=== PATIENT | female | born 1960 | race Caucasian/White ===

== ENCOUNTER 2017-10-11 12:28 | Emergency (ER) | payer SELFPAY ==
[2017-10-11 12:38] VITALS: BP 154/90; PULSE 99; RESP 18; TEMP 98.3
--- NOTE | 2017-10-11 13:54 | ED ---
Skin/Abscess/FB HPI - General Chief complaint: Skin/Abscess/Foreign Body Stated complaint: Rash on forehead & eye Time Seen by Provider: 10/11/17 12:50 Source: patient Mode of arrival: ambulatory Limitations: no limitations - History of Present Illness Initial comments: Patient is a 57-year-old female presenting to the emergency department with chief complaint of rash to the left side of her forehead that started on . Patient complains of a tingling and itching sensation. Patient states she also broke a blood vessel in her left eye from coughing. Patient states she tried calamine lotion [id number] without relief. No history of recent illness, fevers, nausea, vomiting, shortness of breath, chest pain, lower abdominal pain. Patient denies history of similar symptoms. - Related Data Home Medications Medication Instructions Recorded Confirmed Ibuprofen [Motrin] 600 mg PO Q6HR PRN 10/11/17 10/11/17 diphenhydrAMINE [Benadryl] 50 mg PO ONCE PRN 10/11/17 10/11/17 Previous Rx's Medication Instructions Recorded Cephalexin [Keflex] 500 mg PO Q6HR #28 cap 10/11/17 predniSONE 50 mg PO DAILY #5 tab 10/11/17 valACYclovir HCL [Valtrex] 1,000 mg PO Q8HR #21 tab 10/11/17 Allergies Allergy/AdvReac Type Severity Reaction Status Date / Time Sulfa (Sulfonamide Allergy Unknown Verified 10/11/17 12:57 Antibiotics) Review of Systems ROS Statement: Those systems with pertinent positive or pertinent negative responses have been documented in the HPI. ROS Other: All systems not noted in ROS Statement are negative. Past Medical History Past Medical History: No Reported History History of Any Multi-Drug Resistant Organisms: None Reported Past Surgical History: No Surgical Hx Reported Past Psychological History: No Psychological Hx Reported Smoking Status: Current every day smoker Past Alcohol Use History: None Reported Past Drug Use History: None Reported General Exam Limitations: no limitations General appearance: alert, in no apparent distress Head exam: Present: atraumatic, normocephalic, normal inspection Eye exam: Present: PERRL, EOMI, periorbital swelling (Mild periorbital swelling. ), other (Subconjunctival hemorrhage to left eye). Absent: scleral icterus Pupils: Present: normal accommodation, other (patton lamp exam reveal no evidence of dendrite lesions or other uptake noted.) Expanded Eyelids: Normal Inspection: Bilateral Pupils: Regular, Round: Bilateral, Reactive: Bilateral Sclera/Conjunctival: Hemorrhage: Left Visual acuity (R) = 20/: 100 Visual acuity (L) = 20/: 100 With correction: No ENT exam: Present: normal oropharynx, mucous membranes moist, TM's normal bilaterally, normal external ear exam Expanded Ear exam: Present: normal external inspection Mouth exam: Present: normal external inspection, tongue normal. Absent: drooling, trismus, muffled voice, tongue elevation Teeth exam: Present: normal inspection Throat exam: normal inspection. negative: tonsillar erythema, tonsillomegaly, tonsillar exudate, R peritonsillar mass, L peritonsillar mass Neck exam: Present: normal inspection, full ROM. Absent: tenderness, lymphadenopathy Respiratory exam: Present: normal lung sounds bilaterally. Absent: respiratory distress, wheezes, rales, rhonchi, decreased breath sounds Cardiovascular Exam: Present: regular rate, normal rhythm, normal heart sounds. Absent: systolic murmur GI/Abdominal exam: Present: soft, normal bowel sounds. Absent: distended, tenderness Extremities exam: Present: normal inspection, full ROM, normal capillary refill. Absent: tenderness Back exam: Present: normal inspection, full ROM. Absent: rash noted Neurological exam: Present: alert, oriented X3, CN II-XII intact, normal gait, other (No focal deficits noted). Absent: motor sensory deficit Psychiatric exam: Present: normal affect, normal mood Skin exam: Present: warm Expanded Type of lesion: Present: rash Distribution of rash: head (Follows dermatome on the left side of face) Description of rash: Present: erythematous, vesicular (Consistent with herpes zoster) Course Vital Signs 10/11/17 12:35 Temperature 98.3 F Pulse Rate 99 Respiratory 18 Rate Blood Pressure 154/90 O2 Sat by Pulse 97 Oximetry Medical Decision Making - Medical Decision Making Herpes zoster without ocular involvement. Concern for secondary bacterial infection due to scratching. Patient placed on Valtrex and Bactrim. Patient instructed to follow-up with jewelry repairer without 24 hours. Patient instructed to follow-up for primary care physician as directed. Patient started to return to the emergency department with any new or worsening symptoms. Patient agrees with treatment plan. Disposition Clinical Impression: Herpes zoster Disposition: HOME SELF-CARE Condition: Good Instructions: Shingles (ED) Additional Instructions: Finish antiviral and antibiotic as directed. Finish prednisone as directed. Follow-up with jewelry repairer within 24 hours and primary care physician in next 24-48 hours. May use Tylenol or Motrin for pain. Please return to the emergency department with any new or worsening symptoms. Prescriptions: Cephalexin [Keflex] 500 mg PO Q6HR #28 cap predniSONE 50 mg PO DAILY #5 tab valACYclovir HCL [Valtrex] 1,000 mg PO Q8HR #21 tab Referrals: Cheyenne Aggarwal MD [Primary Care Provider] - 1-2 days Sal Argueta MD [STAFF PHYSICIAN] - 1-2 days (follow-up within 24 hours ) Decision Time: 13:54
== END 2017-10-11 14:02 | disposition home or self-care (01) ==
LOC: EC 12:28
DX: B02.9 Zoster without complications (principal); F17.200 Nicotine dependence, unspecified, uncomplicated; Z88.2 Allergy status to sulfonamides
CPT/HCPCS: 99282

== ENCOUNTER 2023-09-05 16:36 | Inpatient (IN) | payer BC, OTHER ==
[2023-09-05] MEDS ORDERED: IPRATROPIUM-ALBUTEROL 3 ML NEB INHALATION STA ×2 (17:02)
[2023-09-05] MEDS ORDERED: methylPREDNISolone SOD SUCCI 125 MG/2 ML VIAL IV STA (17:03)
[2023-09-05] MEDS ORDERED: MAGNESIUM SULFATE-D5W PMX 1 GM in DEXTROSE/WATER 1 100ML.BAG IVPB STA (17:03)
--- NOTE | 2023-09-05 17:34 | ED ---
General Adult HPI - General Chief complaint: Shortness of Breath Stated complaint: CHARLIE Time Seen by Provider: 09/05/23 16:58 Source: patient, RN notes reviewed, old records reviewed Mode of arrival: wheelchair Limitations: no limitations - History of Present Illness Initial comments: Patient is a 63-year-old female who presents emergency department for shortness of breath. Is a chronic smoker. Recently diagnosed with COPD. Is not normally on oxygen. He was found to be possibly hypoxic into the 60%'s in triage however they were using pulse ox over a nail turkish nail. She was placed in trauma bay 1 for evaluation. States her shortness of breath has been progressive for weeks to months. Endorses chronic cough that is unchanged from baseline. No increased sputum production. No fevers, chills. Denies any chest pain, abdominal pain, nausea, vomiting. Has noticed a few months of mildly increased lower extremity swelling. States she still smokes. Has no other acute complaints at this time. Presents for shortness of breath. Presents from Dr. Aggarwal's office. - Related Data Home Medications Medication Instructions Recorded Confirmed No Known Home Medications 09/05/23 09/05/23 Allergies Allergy/AdvReac Type Severity Reaction Status Date / Time Sulfa (Sulfonamide Allergy Unknown Verified 09/05/23 19:08 Antibiotics) Childhood Review of Systems ROS Statement: Those systems with pertinent positive or pertinent negative responses have been documented in the HPI. Review of Systems: CONST: Denies fever EYES: Denies blurry vision ENT: Denies nasal congestion C/V: Denies Chest pain RESP: Endorses shortness of breath GI: Denies abdominal pain : Denies dysuria SKIN: Denies rash. MSK: Denies joint pain. NEURO: Denies headache ROS Other: All systems not noted in ROS Statement are negative. Past Medical History Past Medical History: No Reported History, COPD History of Any Multi-Drug Resistant Organisms: None Reported Past Surgical History: No Surgical Hx Reported Past Psychological History: No Psychological Hx Reported Smoking Status: Current every day smoker, Heavy tobacco smoker Past Alcohol Use History: None Reported Past Drug Use History: None Reported General Exam - General Exam Comments Initial Comments: General: Appears in no acute distress. HEAD: Normal with no signs of head trauma. EYES: PERRLA, EOMI, conjunctiva normal, no discharge. ENT: Hearing grossly intact, normal oropharynx. RESPIRATORY: Diminished breath sounds bilaterally. No obvious rhonchi. Hypoxic on room air. Normoxic on 2-3 L nasal cannula. No significantly increased work of breathing. C/V: Regular rate and rhythm. S1 and S2 auscultated, mild bilateral lower extremity symmetrical pitting edema., peripheral pulses 2+ and intact throughout ABD: Abd is soft, nontender, nondistended EXT: Normal range of motion, no obvious deformity SKIN: No rashes or lesions observed on exposed skin. NEURO: Alert and oriented 4. Limitations: no limitations Course Vital Signs 09/05/23 09/05/23 09/05/23 16:49 16:53 17:03 Temperature 98.2 F Pulse Rate 109 H 105 H Respiratory 20 20 Rate Blood Pressure 98/58 131/77 O2 Sat by Pulse 67 L 88 L 92 L Oximetry 09/05/23 09/05/23 09/05/23 17:09 17:21 18:00 Temperature Pulse Rate 105 H 111 H 94 Respiratory 20 Rate Blood Pressure 134/78 O2 Sat by Pulse 92 L Oximetry 09/05/23 09/05/23 09/05/23 18:49 19:34 19:51 Temperature Pulse Rate 92 87 86 Respiratory 20 22 Rate Blood Pressure 125/83 125/75 O2 Sat by Pulse 96 94 L Oximetry Medical Decision Making - Medical Decision Making Was pt. sent in by a medical professional or institution (, PA, CABLE SPLICER HELPER, urgent care, hospital, or usp...) When possible be specific @ -Sent in by Dr. Aggarwal Did you speak to anyone other than the patient for history (EMS, parent, family, police, friend...)? What history was obtained from this source @ -No Did you review nursing and triage notes (agree or disagree)? Why? @ -I reviewed and agree with nursing and triage notes Were old charts reviewed (outside hosp., previous admission, EMS record, old EKG, old radiological studies, urgent care reports/EKG's, usp records)? Report findings @ -Old charts reviewed. Differential Diagnosis (chest pain, altered mental status, abdominal pain women, abdominal pain men, vaginal bleeding, weakness, fever, dyspnea, syncope, headac he, dizziness, GI bleed, back pain, seizure, CVA, palpatations, mental health, musculoskeletal)? @ -Differential Dyspnea: Coronary syndrome, arrhythmia, tamponade, asthma, COPD, pulmonary embolism, pneumonia, pneumothorax, pulmonary effusion, anaphylaxis, diabetic ketoacidosis, flailed chest, pulmonary contusion, diaphragmatic rupture, anemia, neuromuscular, this is not meant to be an all-inclusive list. EKG interpreted by me (3pts min.). @ -As above X-rays interpreted by me (1pt min.). @ -Chest x-ray reveals bilateral infiltrates. Concern for pneumonia CT interpreted by me (1pt min.). @ -None done U/S interpreted by me (1pt. min.). @ -None done What testing was considered but not performed or refused? (CT, X-rays, U/S, labs)? Why? @ -None What meds were considered but not given or refused? Why? @ -None Did you discuss the management of the patient with other professionals (professionals i.e. , PA, CABLE SPLICER HELPER, lab, RT, psych nurse, director of social media marketing, director appointment, teacher, collections officer, case liner)? Give summary @ -I spoke with Dr. English who accepted the admission. Was smoking cessation discussed for >3mins.? @ -No Was critical care preformed (if so, how long)? @ -Yes, 35 min Were there social determinants of health that impacted care today? How? (Homelessness, low income, unemployed, alcoholism, drug addiction, transportation, low edu. Level, literacy, decrease access to med. care, half-way, rehab)? @ -No Was there de-escalation of care discussed even if they declined (Discuss DNR or withdrawal of care, Hospice)? DNR status @ -No What co-morbidities impacted this encounter? (DM, HTN, Smoking, COPD, CAD, Cancer, CVA, ARF, Chemo, Hep., AIDS, mental health diagnosis, sleep apnea, morbid obesity)? @ -None Was patient admitted / discharged? Hospital course, mention meds given and route, prescriptions, significant lab abnormalities, going to OR and other pertinent info. @ -Based on the patient's presentation and physical exam, I do believe symptoms likely are his COPD exacerbation causing her current hypoxic respiratory failure requiring nasal cannula oxygen. Cannot definitely rule out CHF at this time she is having some mild increased lower extremity edema. Patient will be symptomatically treated with DuoNeb times, IV steroids and magnesium. We'll obtain cardiopulmonary labs. Patient was in agreement this plan. Patient's vital signs initially were hypoxic on room air in triage possibly done and 60s however on 2-3 L nasal cannula patient is saturating anywhere from 91 and 94%. EKG shows no signs of ischemia.Chest x-ray reveals bilateral infiltrates per patient's laboratory studies are remarkable for leukocytosis of 26.1. Patient is not on steroids. Lactic acid is within normal limits. BNP is elevated to 2500. Viral swabs negative. On reevaluation, patient's chest tightness is improved. More wheezes bilaterally. Patient is saturating 94% on 2 L nasal cannula and remained stable. Hemodynamically stable otherwise. We discussed her workup. We will start the patient on IV antibiotics, obtain blood cultures and sputum cultures, admit for pneumonia as well as COPD exacerbation. Pulmonology was consulted. Patient was in agreement this plan. Respiratory admitting team, Dr. English who accepted the admission. Undiagnosed new problem with uncertain prognosis? @ -No Drug Therapy requiring intensive monitoring for toxicity (Heparin, Nitro, Insulin, Cardizem)? @ -No Were any procedures done? @ -No Diagnosis/symptom? @ -COPD, pneumonia, hypoxic respiratory failure Acute, or Chronic, or Acute on Chronic? @ -Acute Uncomplicated (without systemic symptoms) or Complicated (systemic symptoms)? @ -Complicated Side effects of treatment? @ -none Exacerbation, Progression, or Severe Exacerbation] @ -no Poses a threat to life or bodily function? @ -Yes - Lab Data Result diagrams: 09/05/23 17:03 09/05/23 17:03 Lab Results 09/05/23 09/05/23 09/05/23 Range/Units 17:03 17:03 17:03 WBC 26.1 H (3.8-10.6) k/uL RBC 4.55 (3.80-5.40) m/uL Hgb 13.8 (11.4-16.0) gm/dL Hct 44.1 (34.0-46.0) % MCV 97.1 (80.0-100.0) fL MCH 30.4 (25.0-35.0) pg MCHC 31.3 (31.0-37.0) g/dL RDW 13.3 (11.5-15.5) % Plt Count 420 (150-450) k/uL MPV 8.4 Neutrophils % 91 % Lymphocytes % 4 % Monocytes % 4 % Eosinophils % 0 % Basophils % 0 % Neutrophils # 23.7 H (1.3-7.7) k/uL Lymphocytes # 1.0 (1.0-4.8) k/uL Monocytes # 1.1 H (0-1.0) k/uL Eosinophils # 0.1 (0-0.7) k/uL Basophils # 0.0 (0-0.2) k/uL Hypochromasia Slight PT 11.0 (9.0-12.0) sec INR 1.0 (<1.2) APTT 23.1 (22.0-30.0) sec Sodium 136 L (137-145) mmol/L Potassium 4.9 (3.5-5.1) mmol/L Chloride 93 L (98-107) mmol/L Carbon Dioxide 35 H (22-30) mmol/L Anion Gap 8 mmol/L BUN 24 H (7-17) mg/dL Creatinine 0.54 (0.52-1.04) mg/dL Est GFR (CKD-EPI)AfAm >90 (>60 ml/min/1.73 sqM) Est GFR (CKD-EPI)NonAf >90 (>60 ml/min/1.73 sqM) Glucose 123 H (74-99) mg/dL Plasma Lactic Acid Giacomo (0.7-2.0) mmol/L Calcium 8.1 L (8.4-10.2) mg/dL Magnesium 1.9 (1.6-2.3) mg/dL Total Bilirubin 0.4 (0.2-1.3) mg/dL AST 25 (14-36) U/L ALT 19 (4-34) U/L Alkaline Phosphatase 117 (38-126) U/L NT-Pro-B Natriuret Pep 2500 pg/mL Total Protein 5.5 L (6.3-8.2) g/dL Albumin 2.6 L (3.5-5.0) g/dL Influenza Type A (PCR) (Not Detectd) Influenza Type B (PCR) (Not Detectd) RSV (PCR) (Not Detectd) SARS-CoV-2 (PCR) (Not Detectd) 09/05/23 09/05/23 Range/Units 17:03 17:03 WBC (3.8-10.6) k/uL RBC (3.80-5.40) m/uL Hgb (11.4-16.0) gm/dL Hct (34.0-46.0) % MCV (80.0-100.0) fL MCH (25.0-35.0) pg MCHC (31.0-37.0) g/dL RDW (11.5-15.5) % Plt Count (150-450) k/uL MPV Neutrophils % % Lymphocytes % % Monocytes % % Eosinophils % % Basophils % % Neutrophils # (1.3-7.7) k/uL Lymphocytes # (1.0-4.8) k/uL Monocytes # (0-1.0) k/uL Eosinophils # (0-0.7) k/uL Basophils # (0-0.2) k/uL Hypochromasia PT (9.0-12.0) sec INR (<1.2) APTT (22.0-30.0) sec Sodium (137-145) mmol/L Potassium (3.5-5.1) mmol/L Chloride (98-107) mmol/L Carbon Dioxide (22-30) mmol/L Anion Gap mmol/L BUN (7-17) mg/dL Creatinine (0.52-1.04) mg/dL Est GFR (CKD-EPI)AfAm (>60 ml/min/1.73 sqM) Est GFR (CKD-EPI)NonAf (>60 ml/min/1.73 sqM) Glucose (74-99) mg/dL Plasma Lactic Acid Giacomo 1.2 (0.7-2.0) mmol/L Calcium (8.4-10.2) mg/dL Magnesium (1.6-2.3) mg/dL Total Bilirubin (0.2-1.3) mg/dL AST (14-36) U/L ALT (4-34) U/L Alkaline Phosphatase (38-126) U/L NT-Pro-B Natriuret Pep pg/mL Total Protein (6.3-8.2) g/dL Albumin (3.5-5.0) g/dL Influenza Type A (PCR) Not Detected (Not Detectd) Influenza Type B (PCR) Not Detected (Not Detectd) RSV (PCR) Not Detected (Not Detectd) SARS-CoV-2 (PCR) Not Detected (Not Detectd) - EKG Data -: EKG Interpreted by Me EKG Comments: 12-lead Electrocardiogram Interpretation Note EKG was reviewed and interpreted by myself. 12-lead ECG performed at 1706 is interpreted by me as revealing sinus tachycardia at a rate of 105 beats per minute. Left axis deviation. NH interval is 141 ms, QRS duration is 91 ms, ATC is 378 ms.. There were no ST or T wave abnormalities to suggest myocardial ischemia or injury. R wave progression across the precordium was satisfactory. By my interpretation this EKG is non-diagnostic for acute ischemia. Critical Care Time Critical Care Time: Yes Total Critical Care Time: 35 Disposition Clinical Impression: COPD (chronic obstructive pulmonary disease), Pneumonia, Hypoxic respiratory failure Disposition: ADMITTED IP TO THIS HOSP Condition: Serious Time of Disposition: 18:45
--- NOTE | 2023-09-05 17:48 | XR ---
EXAMINATION TYPE: XR chest 2V DATE OF EXAM: 09/05/2023 COMPARISON: NONE HISTORY: Shortness of breath TECHNIQUE: Frontal and lateral views of the chest are obtained. FINDINGS: There is diffuse interstitial opacity in the mid lower lung zones. In addition there is a focal airsp ashlee opacity in the right middle lobe. There is a small left pleural effusion. The pulmonary vasculature does not appear congested and the heart size is normal. There is no pneumothorax. The osseous structures are intact. IMPRESSION: Right middle lobe opacity in bilateral mid and lower lobe interstitial opacity along with small left pleural effusion. The findings consistent with acute cardiopulmonary disease most likely pneumonia.
[2023-09-05 17:59] LABS: Basophils % (A) 0 %; Eosinophils # (A) 0.1 k/uL (0-0.7); Eosinophils % (A) 0 %; HCT 44.1 % (34.0-46.0); HGB 13.8 gm/dL (11.4-16.0); Hypochromasia Slight; Lymphocytes % (A) 4 %; MCH 30.4 pg (25.0-35.0); MCHC 31.3 g/dL (31.0-37.0); MCV 97.1 fL (80.0-100.0); Mean Platelet Volume 8.4; Monocytes # (A) 1.1 k/uL (0-1.0); Monocytes % (A) 4 %; Neutrophils # (A) 23.7 k/uL (1.3-7.7); Neutrophils % (A) 91 %; Platelet Count 420 k/uL (150-450); RBC 4.55 m/uL (3.80-5.40); RDW 13.3 % (11.5-15.5); WBC 26.1 k/uL (3.8-10.6)
[2023-09-05 18:12] LABS: ALT 19 U/L (4-34); AST 25 U/L (14-36); African American GFR (CKD) >90 (>60 ml/min/1.73 sqM); Albumin 2.6 g/dL (3.5-5.0); Alkaline Phosphatase 117 U/L (38-126); Blood Urea Nitrogen 24 mg/dL (7-17); Calcium 8.1 mg/dL (8.4-10.2); Chloride 93 mmol/L (98-107); Glucose 123 mg/dL (74-99); Magnesium 1.9 mg/dL (1.6-2.3); Non-African American GFR(CKD) >90 (>60 ml/min/1.73 sqM); Potassium 4.9 mmol/L (3.5-5.1); Sodium 136 mmol/L (137-145); Total Bilirubin 0.4 mg/dL (0.2-1.3); Total Protein 5.5 g/dL (6.3-8.2)
[2023-09-05 18:17] LABS: NT-Pro-B-Type Natriuretic Pept 2500 pg/mL
[2023-09-05 18:18] LABS: Anion Gap 8 mmol/L; Carbon Dioxide 35 mmol/L (22-30)
[2023-09-05 18:21] LABS: Partial Thromboplastin Time 23.1 sec (22.0-30.0)
[2023-09-05] MEDS ORDERED: ACETAMINOPHEN TAB 325 MG TAB PO PRN (18:50)
[2023-09-05] MEDS ORDERED: NALOXONE 0.4 MG/ML 1 ML VIAL IV PRN (18:50)
[2023-09-05] MEDS ORDERED: PNEUMONIA PROTOCOL UTILIZED 1 EACH MISC PO PRN (18:53)
[2023-09-05] MEDS ORDERED: AZITHROMYCIN 500 MG in SODIUM CHLORIDE 0.9% 250 ML IVPB STA (18:53)
[2023-09-05] MEDS: methylPREDNISolone SOD SUCCI 40 MG/ML 1 ML VIAL IV SCH (19:10)
[2023-09-05] MEDS: SODIUM CHLORIDE 0.9% 1,000 ML IV SCH (19:48)
[2023-09-05] MEDS: IPRATROPIUM-ALBUTEROL 3 ML NEB INHALATION SCH (19:50)
[2023-09-05] MEDS: HEPARIN SODIUM,PORCINE 5,000 UNIT/ML 1 ML VIAL SQ SCH (23:53)
[2023-09-06] MEDS: IPRATROPIUM-ALBUTEROL 3 ML NEB INHALATION SCH ×6 (00:47→21:20)
[2023-09-06 06:11] LABS: Glucose,Whole Blood 111 mg/dL (70-110)
[2023-09-06 08:08] LABS: Basophils % (A) 0 %; Eosinophils % (A) 0 %; HCT 42.6 % (34.0-46.0); HGB 13.3 gm/dL (11.4-16.0); Hypochromasia Moderate; Lymphocytes # (A) 0.5 k/uL (1.0-4.8); Lymphocytes % (A) 3 %; MCH 30.6 pg (25.0-35.0); MCHC 31.1 g/dL (31.0-37.0); MCV 98.4 fL (80.0-100.0); Mean Platelet Volume 8.3; Monocytes # (A) 0.4 k/uL (0-1.0); Monocytes % (A) 2 %; Neutrophils # (A) 17.1 k/uL (1.3-7.7); Neutrophils % (A) 94 %; Platelet Count 399 k/uL (150-450); RBC 4.32 m/uL (3.80-5.40); RDW 13.2 % (11.5-15.5); WBC 18.2 k/uL (3.8-10.6)
[2023-09-06] MEDS: SODIUM CHLORIDE 0.9% 1,000 ML IV SCH ×2 (08:23→21:54)
[2023-09-06 08:24] LABS: African American GFR (CKD) >90 (>60 ml/min/1.73 sqM); Anion Gap 6 mmol/L; Blood Urea Nitrogen 24 mg/dL (7-17); Calcium 8.4 mg/dL (8.4-10.2); Carbon Dioxide 36 mmol/L (22-30); Chloride 95 mmol/L (98-107); Glucose 122 mg/dL (74-99); Non-African American GFR(CKD) >90 (>60 ml/min/1.73 sqM); Potassium 5.3 mmol/L (3.5-5.1); Sodium 137 mmol/L (137-145)
[2023-09-06] MEDS: methylPREDNISolone SOD SUCCI 40 MG/ML 1 ML VIAL IV SCH (08:54)
[2023-09-06] MEDS: HEPARIN SODIUM,PORCINE 5,000 UNIT/ML 1 ML VIAL SQ SCH ×3 (08:57→23:16)
[2023-09-06] MEDS ORDERED: FUROSEMIDE 10 MG/ML 2 ML VIAL IV STA (09:42)
--- NOTE | 2023-09-06 09:45 | P.CRDCN ---
History of Present Illness Consult date: 09/06/23 Chief complaint: Shortness of breath History of present illness: The patient is a pleasant 63-year-old female patient with a past medical history significant for smoking but no diabetes or hypertension or dyslipidemia or coronary artery disease or congestive heart failure. We requested to see the patient as a consult for further evaluation off shortness of breath. The patient presented to the hospital complaining of shortness of breath which has progressed on her lately. Beside that she developed very mild lower extremity edema. No symptoms of pain in the chest and no dizziness or lightheadedness, presyncope or syncope. She underwent an EKG showing sinus with no significant ST or T-wave abnormalities. And the proBNP came in to be elevated. The chest x-ray showed findings consistent with COPD but she did have small bilateral. She underwent an echo on that still pending. The patient doesn't recall seeing any visual display manager in the past and she never been diagnosed was congestive heart failure. The examination is remarkable for mild bilateral lower extremities edema Assessment Shortness of breath likely to be multifactorial and predominantly related to COPD exacerbation with a component very mild right heart failure History of smoking Plan Continue the current medical regimen Follow-up on the echocardiogram which was performed Give the patient one dose of Lasix IV Follow-up with the patient Past Medical History Past Medical History: No Reported History, COPD History of Any Multi-Drug Resistant Organisms: None Reported Past Surgical History: No Surgical Hx Reported Past Psychological History: No Psychological Hx Reported Smoking Status: Current every day smoker, Heavy tobacco smoker Past Alcohol Use History: None Reported Past Drug Use History: None Reported Medications and Allergies Home Medications Medication Instructions Recorded Confirmed Type No Known Home Medications 09/05/23 09/05/23 History Allergies Allergy/AdvReac Type Severity Reaction Status Date / Time Sulfa (Sulfonamide Allergy Unknown Verified 09/05/23 19:08 Antibiotics) Childhood Physical Exam Vitals: Vital Signs Temp Pulse Pulse Resp BP BP Pulse Ox 09/06/23 08:30 70 09/06/23 08:14 74 09/06/23 03:25 74 09/06/23 03:15 78 09/06/23 01:00 70 09/06/23 00:49 72 09/05/23 23:53 97.6 F 80 18 92/46 91 L 09/05/23 20:02 84 09/05/23 19:51 86 09/05/23 19:34 87 22 125/75 94 L 09/05/23 18:49 92 20 125/83 96 09/05/23 18:00 94 20 134/78 92 L 09/05/23 17:21 111 H 09/05/23 17:09 105 H 09/05/23 17:03 105 H 20 131/77 92 L 09/05/23 16:53 88 L 09/05/23 16:49 98.2 F 109 H 20 98/58 67 L Intake and Output 09/05/23 09/06/23 09/06/23 22:59 06:59 14:59 Other: # Voids 1 Weight 49.895 kg 49.895 kg Results 09/06/23 07:41 09/06/23 07:41 Cardiac Enzymes 09/05/23 Range/Units 17:03 AST 25 (14-36) U/L Coagulation 09/05/23 Range/Units 17:03 PT 11.0 (9.0-12.0) sec APTT 23.1 (22.0-30.0) sec CBC 09/05/23 09/06/23 Range/Units 17:03 07:41 WBC 26.1 H 18.2 H (3.8-10.6) k/uL RBC 4.55 4.32 (3.80-5.40) m/uL Hgb 13.8 13.3 (11.4-16.0) gm/dL Hct 44.1 42.6 (34.0-46.0) % Plt Count 420 399 (150-450) k/uL Comprehensive Metabolic Panel 09/05/23 09/06/23 Range/Units 17:03 07:41 Sodium 136 L 137 (137-145) mmol/L Potassium 4.9 5.3 H (3.5-5.1) mmol/L Chloride 93 L 95 L (98-107) mmol/L Carbon Dioxide 35 H 36 H (22-30) mmol/L BUN 24 H 24 H (7-17) mg/dL Creatinine 0.54 0.60 (0.52-1.04) mg/dL Glucose 123 H 122 H (74-99) mg/dL Calcium 8.1 L 8.4 (8.4-10.2) mg/dL AST 25 (14-36) U/L ALT 19 (4-34) U/L Alkaline Phosphatase 117 (38-126) U/L Total Protein 5.5 L (6.3-8.2) g/dL Albumin 2.6 L (3.5-5.0) g/dL Current Medications Generic Name Dose Route Start Last Admin Trade Name Freq PRN Reason Stop Dose Admin Acetaminophen 650 mg 09/05/23 18:50 Acetaminophen Tab 325 Mg Tab PO Q6HR PRN Mild Pain or Fever > 100.5 Albuterol/Ipratropium 3 ml 09/05/23 20:00 09/06/23 08:14 Ipratropium-Albuterol 3 Ml Neb INHALATION 3 ml RT-Q4H FIORDALIZA Administration Azithromycin 500 mg 09/06/23 09:00 Azithromycin 500 Mg Tab PO 09/07/23 09:01 DAILY FIORDALIZA Protocol Heparin Sodium (Porcine) 5,000 unit 09/06/23 00:00 09/06/23 08:57 Heparin Sodium,Porcine 5,000 Unit/Ml 1 Ml Vial SQ 5,000 unit Q8HR FIORDALIZA Administration Sodium Chloride 1,000 mls @ 75 mls/hr 09/05/23 19:00 09/06/23 08:23 Saline 0.9% IV Not Given .[id number] FIORDALIZA Ceftriaxone Sodium 2 gm/ 50 mls @ 100 mls/hr 09/06/23 09:00 09/06/23 08:54 Sodium Chloride IVPB 09/09/23 09:29 100 mls/hr Q24HR FIORDALIZA Administration Protocol Methylprednisolone Sodium Succinate 40 mg 09/05/23 21:00 09/06/23 08:54 Methylprednisolone Sod Succi 40 Mg/Ml 1 Ml Vial IV 40 mg Q12HR FIORDALIZA Administration Miscellaneous Information 1 each 09/05/23 18:53 Pneumonia Protocol Utilized 1 Each Misc PO ONCE PRN Per Protocol Naloxone HCl 0.2 mg 09/05/23 18:50 Naloxone 0.4 Mg/Ml 1 Ml Vial IV Q2M PRN Opioid Reversal Intake and Output 09/05/23 09/06/23 09/06/23 22:59 06:59 14:59 Other: # Voids 1 Weight 49.895 kg 49.895 kg 09/06/23 07:41 09/06/23 07:41
--- NOTE | 2023-09-06 10:28 | XR ---
EXAMINATION TYPE: XR chest 2V DATE OF EXAM: 09/06/2023 6:45 AM CLINICAL INDICATION:Female, 63 years old with history of pneumonia; [facility] COMPARISON: 09/05/2023 TECHNIQUE: XR chest 2V Frontal and lateral views of the chest. FINDINGS: Lines/Tubes: EKG leads overlie the chest. No indwelling lines are seen. Lungs/Pleura: Hyperinflated lungs with diffusely coarsened interstitium, suggestive of background TEXTILE SUPERVISOR D. Slight interval worsening of mixed alveolar and interstitial opacities in the mid to lower lung zo aviva including consolidative opacity in the region of the RML. Small pleural effusions suggested. No v isible pneumothorax. Pulmonary vascularity: Mildly increased. Heart/mediastinum: Cardiomediastinal silhouette is unremarkable. Normal heart size. Musculoskeletal: No acute osseous pathology. Other findings: None IMPRESSION: Slight interval worsening of bilateral pulmonary opacities, may represent pneumonia with superimposed edema not excluded in the proper setting.
[2023-09-06] MEDS ORDERED: RX INFO: IV CONTRAST WAS GIVEN 1 EACH MISC MISCELLANE PRN (10:41)
[2023-09-06] MEDS: NICOTINE 21MG/24HR PATCH TRANSDERM SCH (11:27)
--- NOTE | 2023-09-06 11:43 | CT ---
EXAMINATION TYPE: CT chest w con CT DLP: 182.09 mGycm, Automated exposure control for dose reduction was used. DATE OF EXAM: 09/06/2023 11:28 AM COMPARISON: Chest radiograph 09/06/2023. CLINICAL INDICATION:Female, 63 years old with history of history of mass ; PHH, History of mass TECHNIQUE: Multiple axial images were obtained through the chest. Sagittal and coronal reformats were created for review. Contrast used:100 ml mL of Isovue 300 with IV Contrast (None if empty) Oral contrast used: (None if empty) FINDINGS: LUNGS/ PLEURA: * Moderate to severe emphysema changes. * Right middle lobe consolidation extending towards the periphery with wedge-shaped measuring 3.9 x 3.9 cm. * Airspace opacities superimposed within the left lower lung. * Scattered nodular densities including 201 image 31 anteriorly measuring 5 mm image 33 measuring 3 mm right lower lung image 47 measuring 5 mm. AIRWAY: Patent and unremarkable. HEART: Size within normal limits. MEDIASTINUM: No gross evidence of adenopathy. VASCULATURE: No aortic aneurysm. No filling defect to suggest pulmonary embolus. MUSCULOSKELETAL: No acute osseous abnormalities SOFT TISSUES/LYMPH NODES: Unremarkable. LOWER NECK: No significant findings. UPPER ABDOMEN: No significant findings. IMPRESSION: 1. Left lower lung airspace opacities concerning for infectious/inflammatory process. 2. Moderate to severe emphysema changes. 3. Wedge-shaped area of consolidation which is a masslike shape in the right middle lobe. Short-term follow-up recommended to ensure resolution and to ensure that there is no underlying mass. 4. Scattered nodular densities attention follow-up imaging. At a minimum short-term follow-up and ye priscilla low-dose lung cancer screening should be performed for these nodules.
--- NOTE | 2023-09-06 11:55 | P.CNPUL ---
History of Present Illness Consult date: 09/06/23 Reason for consult: dyspnea, COPD History of present illness: This is a 63-year-old female patient, carries [id number] smoking history, coming into the hospital because of progressive worsening shortness of breath. Limited cough. No sputum production. No fever. No chills. No hemoptysis. No pleurisy. She has not seen any physician and recently struck to establish herself with Dr. Aggarwal. She doesn't take any form of medications. Does not use oxygen or bronchodilators at home. On admission, the white cell count was elevated at 26 and dropped down to 18. Hemoglobin is at 15.8 with a platelet count of 420. D-dimer is at 2.02. The patient is a BUN of 24 with a creatinine of 0.6 and a potassium level of 5.3 and a sodium level of 137. No previous history of Covid 19 infection in her Covid 19 came back negative. The rest of t he viral screen was also negative. She did complain of some lower extremity edema. Chest x-ray showed bilateral pulmonary opacities consistent with pneumonia. No history of cardiac disease. No history of CHF. No cardiac arrhythmias. Review of Systems Constitutional: Reports as per HPI, Reports fatigue, Reports weight loss Eyes: denies as per HPI, denies blurred vision, denies bulging eye, denies decreased vision, denies diplopia, denies discharge, denies dry eye, denies irritation, denies itching, denies pain, denies photophobia, denies loss of peripheral vision, denies loss of vision, denies tunnel vision/blind spots Ears: deny: decreased hearing, ear discharge, earache, tinnitus Ears, nose, mouth and throat: Reports as per HPI Breasts: absent: as per HPI, change in shape, gynecomastia, masses, nipple discharge, pain, skin changes, swelling Cardiovascular: Reports decreased exercise tolerance, Reports dyspnea on exe rtion Respiratory: Reports cough, Reports dyspnea Genitourinary: Reports as per HPI Menstruation: Reports as per HPI Musculoskeletal: Reports as per HPI Musculoskeletal: absent: ankle pain, ankle stiffness, ankle swelling Integumentary: Reports as per HPI Neurological: Reports as per HPI Psychiatric: Reports as per HPI Endocrine: Reports as per HPI Hematologic/Lymphatic: Reports as per HPI Allergic/Immunologic: Reports as per HPI Past Medical History Past Medical History: No Reported History, COPD History of Any Multi-Drug Resistant Organisms: None Reported Past Surgical History: No Surgical Hx Reported Past Psychological History: No Psychological Hx Reported Smoking Status: Current every day smoker, Heavy tobacco smoker Past Alcohol Use History: None Reported Past Drug Use History: None Reported Medications and Allergies Home Medications Medication Instructions Recorded Confirmed Type No Known Home Medications 09/05/23 09/05/23 History Allergies Allergy/AdvReac Type Severity Reaction Status Date / Time Sulfa (Sulfonamide Allergy Unknown Verified 09/05/23 19:08 Antibiotics) Childhood Physical Exam Vitals: Vital Signs Temp Pulse Pulse Resp BP BP Pulse Ox 09/06/23 08:30 70 09/06/23 08:14 74 09/06/23 03:25 74 09/06/23 03:15 78 09/06/23 01:00 70 09/06/23 00:49 72 09/05/23 23:53 97.6 F 80 18 92/46 91 L 09/05/23 20:02 84 09/05/23 19:51 86 09/05/23 19:34 87 22 125/75 94 L 09/05/23 18:49 92 20 125/83 96 09/05/23 18:00 94 20 134/78 92 L 09/05/23 17:21 111 H 09/05/23 17:09 105 H 09/05/23 17:03 105 H 20 131/77 92 L 09/05/23 16:53 88 L 09/05/23 16:49 98.2 F 109 H 20 98/58 67 L Intake and Output 09/05/23 09/06/23 09/06/23 22:59 06:59 14:59 Other: # Voids 1 Weight 49.895 kg 49.895 kg General: Appears in no acute distress. on 2 liters NC HEAD: Normal with no signs of head trauma. EYES: PERRLA, EOMI, conjunctiva normal, no discharge. ENT: Hearing grossly intact, normal oropharynx. RESPIRATORY: Diminished breath sounds bilaterally. No obvious rhonchi. Hypoxic on room air. Normoxic on 2-3 L nasal cannula. No significantly increased work of breathing. The patient is marked diminished breath sounds bilaterally. Scattered opacities. No wheezes. C/V: Regular rate and rhythm. S1 and S2 auscultated, mild bilateral lower extremity symmetrical pitting edema., peripheral pulses 2+ and intact throughout ABD: Abd is soft, nontender, nondistended EXT: Normal range of motion, no obvious deformity SKIN: No rashes or lesions observed on exposed skin. NEURO: Alert and oriented 4. Results - Laboratory Findings CBC and BMP: 09/06/23 07:41 09/06/23 07:41 ABG WBC 18.2 k/uL (3.8-10.6) H 09/06/23 07:41 RBC 4.32 m/uL (3.80-5.40) 09/06/23 07:41 Hgb 13.3 gm/dL (11.4-16.0) 09/06/23 07:41 Hct 42.6 % (34.0-46.0) 09/06/23 07:41 MCV 98.4 fL (80.0-100.0) 09/06/23 07:41 MCH 30.6 pg (25.0-35.0) 09/06/23 07:41 MCHC 31.1 g/dL (31.0-37.0) 09/06/23 07:41 RDW 13.2 % (11.5-15.5) 09/06/23 07:41 Plt Count 399 k/uL (150-450) 09/06/23 07:41 MPV 8.3 09/06/23 07:41 Neutrophils % 94 % 09/06/23 07:41 Lymphocytes % 3 % 09/06/23 07:41 Monocytes % 2 % 09/06/23 07:41 Eosinophils % 0 % 09/06/23 07:41 Basophils % 0 % 09/06/23 07:41 Neutrophils # 17.1 k/uL (1.3-7.7) H 09/06/23 07:41 Lymphocytes # 0.5 k/uL (1.0-4.8) L 09/06/23 07:41 Monocytes # 0.4 k/uL (0-1.0) 09/06/23 07:41 Eosinophils # 0.0 k/uL (0-0.7) 09/06/23 07:41 Basophils # 0.0 k/uL (0-0.2) 09/06/23 07:41 Hypochromasia Moderate 09/06/23 07:41 PT 11.0 sec (9.0-12.0) 09/05/23 17:03 INR 1.0 (<1.2) 09/05/23 17:03 APTT 23.1 sec (22.0-30.0) 09/05/23 17:03 Sodium 137 mmol/L (137-145) 09/06/23 07:41 Potassium 5.3 mmol/L (3.5-5.1) H 09/06/23 07:41 Chloride 95 mmol/L (98-107) L 09/06/23 07:41 Carbon Dioxide 36 mmol/L (22-30) H 09/06/23 07:41 Anion Gap 6 mmol/L 09/06/23 07:41 BUN 24 mg/dL (7-17) H 09/06/23 07:41 Creatinine 0.60 mg/dL (0.52-1.04) 09/06/23 07:41 Est GFR (CKD-EPI)AfAm >90 (>60 ml/min/1.73 sqM) 09/06/23 07:41 Est GFR (CKD-EPI)NonAf >90 (>60 ml/min/1.73 sqM) 09/06/23 07:41 Glucose 122 mg/dL (74-99) H 09/06/23 07:41 POC Glucose (mg/dL) 111 mg/dL (70-110) H 09/06/23 06:09 POC Glu Instrument Sterilizer Tru Fraga 09/06/23 06:09 Plasma Lactic Acid Giacomo 1.2 mmol/L (0.7-2.0) 09/05/23 17:03 Calcium 8.4 mg/dL (8.4-10.2) 09/06/23 07:41 Magnesium 1.9 mg/dL (1.6-2.3) 09/05/23 17:03 Total Bilirubin 0.4 mg/dL (0.2-1.3) 09/05/23 17:03 AST 25 U/L (14-36) 09/05/23 17:03 ALT 19 U/L (4-34) 09/05/23 17:03 Alkaline Phosphatase 117 U/L (38-126) 09/05/23 17:03 NT-Pro-B Natriuret Pep 2500 pg/mL 09/05/23 17:03 Total Protein 5.5 g/dL (6.3-8.2) L 09/05/23 17:03 Albumin 2.6 g/dL (3.5-5.0) L 09/05/23 17:03 Influenza Type A (PCR) Not Detected (Not Detectd) 09/05/23 17:03 Influenza Type B (PCR) Not Detected (Not Detectd) 09/05/23 17:03 RSV (PCR) Not Detected (Not Detectd) 09/05/23 17:03 SARS-CoV-2 (PCR) Not Detected (Not Detectd) 09/05/23 17:03 PT/INR, D-dimer PT 11.0 sec (9.0-12.0) 09/05/23 17:03 INR 1.0 (<1.2) 09/05/23 17:03 Abnormal lab findings: Abnormal Labs 09/05/23 09/05/23 09/06/23 17:03 17:03 06:09 WBC 26.1 H Neutrophils # 23.7 H Lymphocytes # Monocytes # 1.1 H Sodium 136 L Potassium Chloride 93 L Carbon Dioxide 35 H BUN 24 H Glucose 123 H POC Glucose (mg/dL) 111 H Calcium 8.1 L Total Protein 5.5 L Albumin 2.6 L 09/06/23 09/06/23 07:41 07:41 WBC 18.2 H Neutrophils # 17.1 H Lymphocytes # 0.5 L Monocytes # Sodium Potassium 5.3 H Chloride 95 L Carbon Dioxide 36 H BUN 24 H Glucose 122 H POC Glucose (mg/dL) Calcium Total Protein Albumin - Diagnostic Findings Chest x-ray: image reviewed Assessment and Plan Plan: Acute COPD exacerbation. The patient has not been evaluated in the past by primary care physician or pulmonology. Nevertheless, based on her presentation and clinical examination, she seems to have advanced COPD. Acute hypoxic respiratory failure Acute bilateral pneumonia. I think is reasonable to stand this patient and get a CAT scan of the chest to rule out any underlying lung masses Acute leukocytosis Chronic smoker Plan Smoking cessation counseling Check Legionella urine antigen Check pro calcitonin level Continue oxygen Continue bronchodilators Continue steroids Continue Rocephin and Zithromax Obtain a CAT scan of the chest with contrast Heparin subcu for DVT prophylaxis Echocardiogram We'll follow
[2023-09-06] MEDS: AZITHROMYCIN 500 MG TAB PO SCH (12:43)
[2023-09-06] MEDS: methylPREDNISolone SOD SUCCI 125 MG/2 ML VIAL IV SCH ×3 (12:43→23:16)
--- NOTE | 2023-09-06 13:20 | HP ---
HISTORY AND PHYSICAL CHIEF COMPLAINT: Shortness of breath. HISTORY OF PRESENT ILLNESS: This is a 63-year-old woman with a past medical history in the past, was admitted with shortness of breath of several years duration because increasing shortness of breath has caused significant difficulties with activity of daily living and the patient presented yesterday. There were some cough and sputum also. The patient was evaluated. Chest x-ray showed bilateral extensive pneumonia and COPD. The patient is hypoxic with 60% saturation. The possibility of mild right heart failure was also considered by Cardiology. There is no history of any fever, rigors, or chills. COVID-19 was negative. The patient has been vaccinated. D-dimer is elevated. PAST MEDICAL HISTORY: Known cardiac respiratory illness as mentioned earlier, possible COPD. HOME MEDICATIONS: None. ALLERGIES: Sulfa. FAMILY HISTORY: No history of heart disease or strokes in the family. SOCIAL HISTORY: Current heavy tobacco smoking. REVIEW OF SYSTEMS: A 14-point review is negative except as mentioned earlier. PHYSICAL EXAMINATION: VITAL SIGNS: Pulse is 76, blood pressure 115/65, respirations 18. HEENT: Conjunctivae normal. NECK: No JVD. CARDIOVASCULAR: S1, S2. RESPIRATIONS: Bilateral scattered rhonchi and crackles. Expiratory wheezing present. ABDOMEN: Soft, nontender. LEGS: No edema. No swelling. NERVOUS SYSTEM: Diffusely weak and emaciated. SKIN: No ulcer, rash, or bleeding. JOINTS: No active deforming arthropathy. LABORATORY DATA: Chest x-ray reviewed personally. D-dimer is elevated. White count 18.1. ASSESSMENT: 1. Chronic obstructive pulmonary disease acute exacerbation, acute bilateral pneumonia, possibly gram-negative. 2. Elevated D-dimer, rule out pulmonary embolism. 3. Elevated WBC. 4. Acute hypoxic respiratory failure, present on admission. 5. History of heavy nicotine dependence. 6. Mild protein-calorie malnutrition with BMI of 16.2. RECOMMENDATIONS AND DISCUSSION: This is a 63-year-old woman, who presented with multiple complex medical issues. We will monitor the patient closely. We will initiate intensive bronchodilator treatment, empiric antibiotics, obtain cultures. D-dimer is positive. I recommended CT angio of chest. COVID-19 is negative. We will continue to monitor IV steroids, pulmonary consultation, Infectious Disease evaluation. Prognosis guarded because of multiple complex medical issues. Cardiology input appreciated. 2D echo has been ordered. Prognosis guarded. Further recommendations to follow. See orders for further details. MMODL / IJN: [id number] /
[2023-09-06] MEDS: SYMBICORT 160-4.5 MCG INHALER INHALATION SCH (21:20)
--- NOTE | 2023-09-06 23:17 | P.CONS ---
History of Present Illness - Reason for Consult Consult date: 09/06/23 Pneumonia Requesting physician: Smooth Magana - Chief Complaint Shortness of breath and cough x few days - History of Present Illness Patient is a 63-year-old female with a past medical history significant for COPD current everyday smoker presenting to the hospital yesterday for evaluation of increasing shortness of breath and hypoxemia apparently the patient did have a low O2 sats of 60% patient complaining of increasing shortness with her been getting worse for the last few weeks with acute worsening over the last day and 2 patient denies having any headache or URI symptoms no chest pain has been complaining of cough which is moderate intensity however the patient is unable to bring up any sputum patient denies having any pleuritic chest pain no nausea no vomiting no choking on the food no abdominal pain or any diarrhea on presentation to the hospital patient was afebrile patient was hypoxic with O2 sats of 67% on room air and is currently on 2 L nasal cannula oxygen patient did have a white count 26.1 with a left shift creatinine was normal liver enzymes are normal influenza RSV COVID and urine for Legionella antigen was negative patient did have a chest x-ray reported right middle lobe opacity with small left effusion patient also have a CT of the chest that shows left lower lobe airspace opacity concerning for pneumonia patient was started on Rocephin and Zithromax infectious disease was consulted for further management of antibiotic therapy Review of Systems Positive point and negatives has been mentioned in the HPI, complete review of systems was performed and all other systems are negative Past Medical History Past Medical History: No Reported History, COPD History of Any Multi-Drug Resistant Organisms: None Reported Past Surgical History: No Surgical Hx Reported Past Psychological History: No Psychological Hx Reported Smoking Status: Current every day smoker, Heavy tobacco smoker Past Alcohol Use History: None Reported Past Drug Use History: None Reported Medications and Allergies Home Medications Medication Instructions Recorded Confirmed Type ALPRAZolam [Xanax] 0.25 mg PO BID PRN #6 tab 09/11/23 Rx Acetaminophen Tab [Tylenol] 650 mg PO Q6HR PRN tab 09/11/23 Rx Amoxic-Pot Clav 875-125Mg 1 tab PO Q12HR 7 Days #14 tab 09/11/23 Rx [Augmentin 875-125] Budesonide-Formot 160-4.5 Mcg 2 puff INHALATION RT-BID 30 Days 09/11/23 Rx [Symbicort 160-4.5 Mcg Inhaler] #1 each Ipratropium-Albuterol Nebulize 3 ml INHALATION RT-Q2H PRN each 09/11/23 Rx [Duoneb 0.5 mg-3 mg/3 ml Soln] Ipratropium-Albuterol Nebulize 3 ml INHALATION RT-QID #100 each 09/11/23 Rx [Duoneb 0.5 mg-3 mg/3 ml Soln] Loratadine [Claritin] 10 mg PO DAILY #30 tab 09/11/23 Rx Nicotine 21Mg/24Hr Patch [Habitrol] 1 patch TRANSDERM DAILY #30 patch 09/11/23 Rx Nicotine Gum (Polacrilex) 2 mg BUCCAL Q4HR PRN #30 pieceofgum 09/11/23 Rx [Nicorette] amLODIPine [Norvasc] 5 mg PO DAILY #30 tab 09/11/23 Rx predniSONE 10 mg PO DIRECTED #30 tab 09/11/23 Rx Fluconazole [Diflucan] 100 mg PO DAILY 7 Days #7 tablet 09/16/23 Rx Allergies Allergy/AdvReac Type Severity Reaction Status Date / Time Sulfa (Sulfonamide Allergy Unknown Verified 09/05/23 19:08 Antibiotics) Childhood Physical Exam Vitals: Vital Signs Temp Pulse Pulse Resp BP BP BP 09/06/23 11:53 70 09/06/23 11:43 78 09/06/23 08:30 70 09/06/23 08:14 74 09/06/23 08:00 97.6 F 76 18 115/64 09/06/23 03:25 74 09/06/23 03:15 78 09/06/23 01:00 70 09/06/23 00:49 72 09/05/23 23:53 97.6 F 80 18 92/46 09/05/23 20:02 84 09/05/23 19:51 86 09/05/23 19:34 87 22 125/75 09/05/23 18:49 92 20 125/83 09/05/23 18:00 94 20 134/78 09/05/23 17:21 111 H 09/05/23 17:09 105 H 09/05/23 17:03 105 H 20 131/77 09/05/23 16:53 09/05/23 16:49 98.2 F 109 H 20 98/58 Pulse Ox 09/06/23 11:53 09/06/23 11:43 09/06/23 08:30 09/06/23 08:14 09/06/23 08:00 91 L 09/06/23 03:25 09/06/23 03:15 09/06/23 01:00 09/06/23 00:49 09/05/23 23:53 91 L 09/05/23 20:02 09/05/23 19:51 09/05/23 19:34 94 L 09/05/23 18:49 96 09/05/23 18:00 92 L 09/05/23 17:21 09/05/23 17:09 09/05/23 17:03 92 L 09/05/23 16:53 88 L 09/05/23 16:49 67 L Intake and Output 09/05/23 09/06/23 09/06/23 22:59 06:59 14:59 Other: # Voids 1 Weight 49.895 kg 49.895 kg GENERAL DESCRIPTION: Middle-aged female lying in bed, no distress. No tachypnea or accessory muscle of respiration use. HEENT: Shows Pallor , no scleral icterus. Oral mucous membrane is dry. No pharyngeal erythema or thrush NECK: Trachea central, no thyromegaly. LUNGS: Unlabored breathing. Decreased intensity of breath sounds HEART: S1, S2, regular rate and rhythm. ABDOMEN: Soft, no tenderness , guarding or rigidity, no organomegaly EXTREMITIES: No edema of feet. SKIN: No rash, no masses palpable. NEUROLOGICAL: The patient is awake, alert, oriented x3, mood and affect normal. Results CBC & Chem 7: 09/11/23 06:34 09/11/23 06:34 Labs: Abnormal Lab Results - Last 24 Hours (Table) 09/05/23 09/05/23 09/06/23 Range/Units 17:03 17:03 06:09 WBC 26.1 H (3.8-10.6) k/uL Neutrophils # 23.7 H (1.3-7.7) k/uL Lymphocytes # (1.0-4.8) k/uL Monocytes # 1.1 H (0-1.0) k/uL D-Dimer (<0.60) mg/L FEU Sodium 136 L (137-145) mmol/L Potassium (3.5-5.1) mmol/L Chloride 93 L (98-107) mmol/L Carbon Dioxide 35 H (22-30) mmol/L BUN 24 H (7-17) mg/dL Glucose 123 H (74-99) mg/dL POC Glucose (mg/dL) 111 H (70-110) mg/dL Calcium 8.1 L (8.4-10.2) mg/dL Total Protein 5.5 L (6.3-8.2) g/dL Albumin 2.6 L (3.5-5.0) g/dL 09/06/23 09/06/23 09/06/23 Range/Units 07:41 07:41 10:08 WBC 18.2 H (3.8-10.6) k/uL Neutrophils # 17.1 H (1.3-7.7) k/uL Lymphocytes # 0.5 L (1.0-4.8) k/uL Monocytes # (0-1.0) k/uL D-Dimer 2.02 H (<0.60) mg/L FEU Sodium (137-145) mmol/L Potassium 5.3 H (3.5-5.1) mmol/L Chloride 95 L (98-107) mmol/L Carbon Dioxide 36 H (22-30) mmol/L BUN 24 H (7-17) mg/dL Glucose 122 H (74-99) mg/dL POC Glucose (mg/dL) (70-110) mg/dL Calcium (8.4-10.2) mg/dL Total Protein (6.3-8.2) g/dL Albumin (3.5-5.0) g/dL Assessment and Plan (1) Pneumonia Status: Acute Code(s): J18.9 - PNEUMONIA, UNSPECIFIED ORGANISM SNOMED Code(s): 532073111 Plan: 1patient presented to hospital with increasing shortness of breath and cough in this patient with evidence of hypoxemia source is likely COPD exacerbation and a component of left lower lobe pneumonia likely community-acquired as the patient has not been on antibiotic in the recent past 2-we will try to obtain sputum for Gram stain and culture check a CRP and procalcitonin level 3-Rocephin 1 g daily and Zithromax to continue while waiting for the culture to finalize We will follow on clinical condition and cultures to further adjust medication if needed Thank you for this consultation we will follow the patient along with you Dictation was produced using [employer] dictation software. please excuse any grammatical, word or spelling errors. Time with Patient: Greater than 30
[2023-09-07] MEDS: IPRATROPIUM-ALBUTEROL 3 ML NEB INHALATION SCH ×7 (00:10→23:41)
[2023-09-07] MEDS: methylPREDNISolone SOD SUCCI 125 MG/2 ML VIAL IV SCH ×3 (05:22→17:28)
[2023-09-07] MEDS: HEPARIN SODIUM,PORCINE 5,000 UNIT/ML 1 ML VIAL SQ SCH ×2 (08:12→15:57)
[2023-09-07] MEDS: AZITHROMYCIN 500 MG TAB PO SCH (08:13)
[2023-09-07] MEDS: NICOTINE 21MG/24HR PATCH TRANSDERM SCH (08:13)
[2023-09-07] MEDS: SYMBICORT 160-4.5 MCG INHALER INHALATION SCH ×2 (08:54→21:28)
[2023-09-07 10:24] LABS: African American GFR (CKD) >90 (>60 ml/min/1.73 sqM); Anion Gap 6 mmol/L; Blood Urea Nitrogen 20 mg/dL (7-17); Calcium 8.7 mg/dL (8.4-10.2); Carbon Dioxide 39 mmol/L (22-30); Chloride 92 mmol/L (98-107); Glucose 173 mg/dL (74-99); Non-African American GFR(CKD) >90 (>60 ml/min/1.73 sqM); Potassium 4.9 mmol/L (3.5-5.1); Sodium 137 mmol/L (137-145)
--- NOTE | 2023-09-07 11:29 | P.PN ---
Subjective HISTORY OF PRESENT ILLNESS: The patient is a pleasant 63-year-old female patient with a past medical history significant for smoking but no diabetes or hypertension or dyslipidemia or coronary artery disease or congestive heart failure. We requested to see the patient as a consult for further evaluation off shortness of breath. The patient presented to the hospital complaining of shortness of breath which has progressed on her lately. Beside that she developed very mild lower extremity edema. No symptoms of pain in the chest and no dizziness or lightheadedness, presyncope or syncope. She underwent an EKG showing sinus with no significant ST or T-wave abnormalities. And the proBNP came in to be elevated. The chest x-ray showed findings consistent with COPD but she did have small bilateral. She underwent an echo on that still pending. The patient doesn't recall seeing any real estate associate attorney in the past and she never been diagnosed was congestive heart failure. 09/07/2023 Patient examined this morning. Patient is sitting in the chair. She denies chest pain or pressure. She does report mild shortness of breath. She is currently requiring oxygen to maintain saturations greater than 92%. Vital signs are stable. PHYSICAL EXAM: VITAL SIGNS: Reviewed. GENERAL: Well-developed in no acute distress. NECK: Supple. No JVD or thyromegaly LUNGS: Respirations even and unlabored. Lungs essentially clear to auscultation bilaterally. HEART: Regular rate and rhythm. S1 and S2 heard. EXTREMITIES: Normal range of motion. No clubbing or cyanosis. Peripheral pulses intact. No lower extremity edema ASSESSMENT: Shortness of breath likely to be multifactorial and predominantly related to COPD exacerbation with a component very mild right heart failure History of smoking PLAN: 2-D echo has been ordered. Await results. Pulmonary following. Smoking cessation recommended No further diuretics at this time Further recommendations pending patient's course Nurse practitioner note has been reviewed by physician. Signing provider agrees with the documented findings, assessment, and plan of care. Objective - Vital Signs Vital signs: Vital Signs Temp 98.4 F 09/07/23 07:25 Pulse 84 09/07/23 09:10 Resp 16 09/07/23 08:13 BP 120/61 09/07/23 07:25 Pulse Ox 92 L 09/07/23 07:25 FiO2 Intake & Output 09/06/23 09/07/23 09/07/23 18:59 06:59 18:59 Other: Voiding Method Toilet # Voids 3 0 - Labs CBC & Chem 7: 09/06/23 07:41 09/07/23 08:13 Labs: Abnormal Lab Results - Last 24 Hours (Table) 09/06/23 09/07/23 Range/Units 07:41 08:13 Chloride 92 L (98-107) mmol/L Carbon Dioxide 39 H (22-30) mmol/L BUN 20 H (7-17) mg/dL Creatinine 0.50 L (0.52-1.04) mg/dL Glucose 173 H (74-99) mg/dL Procalcitonin 0.28 H (0.02-0.09) ng/mL
--- NOTE | 2023-09-07 12:56 | PN ---
PROGRESS NOTE DATE OF SERVICE: 09/07/2023 SUBJECTIVE: This is a 63-year-old woman, who was admitted with COPD acute exacerbation as well as acute bilateral pneumonia, is being closely monitored at this time. The patient is on broad-spectrum IV antibiotics. Dr. Lindsey is following the patient closely. OBJECTIVE: VITAL SIGNS: Pulse is 89, blood pressure 120/60, respirations 16. CHEST: A few scattered rhonchi and crackles. ABDOMEN: Soft. NERVOUS SYSTEM: Nonfocal. LABORATORY DATA: Reviewed. ASSESSMENT: 1. Chronic obstructive pulmonary disease acute exacerbation with acute bilateral pneumonia, possibly gram-negative, left more than the right. 2. Elevated D-dimer, pulmonary embolism ruled out. 3. Elevated WBC. 4. Acute hypoxic respiratory failure, present on admission. 5. History of heavy nicotine dependence. 6. Mild protein-calorie malnutrition with BMI of 16.2. RECOMMENDATIONS: Recommended to continue current management and continue symptomatic treatment. Continue with bronchodilators. Continue with empiric antibiotics. Closely follow with Pulmonary. Right middle lobe consolidation was also noted. Once again, the prognosis is guarded. Further recommendations to follow. See orders for further details. Legionella is negative. Check mycoplasma antibodies and COVID PCR as well. MMODL / IJN: [id number] /
--- NOTE | 2023-09-07 14:59 | P.PN ---
Subjective Progress Note Date: 09/07/23 This is a 63-year-old female patient, carries [id number] smoking history, coming into the hospital because of progressive worsening shortness of breath. Limited cough. No sputum production. No fever. No chills. No hemoptysis. No pleurisy. She has not seen any physician and recently struck to establish herself with Dr. Aggarwal. She doesn't take any form of medications. Does not use oxygen or bronchodilators at home. On admission, the white cell count was elevated at 26 and dropped down to 18. Hemoglobin is at 15.8 with a platelet count of 420. D-dimer is at 2.02. The patient is a BUN of 24 with a creatinine of 0.6 and a potassium level of 5.3 and a sodium level of 137. No previous his tory of Covid 19 infection in her Covid 19 came back negative. The rest of the viral screen was also negative. She did complain of some lower extremity edema. Chest x-ray showed bilateral pulmonary opacities consistent with pneumonia. No history of cardiac disease. No history of CHF. No cardiac arrhythmias. The patient is seen today September 17 in follow-up on the regular medical floor. She is currently sitting up at the bedside. Awake and alert in no acute distress. Maintaining O2 saturations in the 90s on 3 L/m per nasal cannula. Chest x-ray has revealed infiltrates of the right middle lobe and left lower lobe. Computed tomography scan of the chest revealed left lower lung airspace opacities, moderate to severe emphysematous changes, wedge-shaped area of consolidation in the right middle lobe. Scattered nodular densities. She is currently on ceftriaxone. She is continued on bronchodilators and steroids. NicoDerm patch in place. Heparin for DVT prophylaxis. Sodium 137. Potassium 4.9. Bicarb 39. BUN 20. Creatinine 0.50. Pro calcitonin 0.28. Legionella screen negative. Objective - Vital Signs Vital signs: Vital Signs Temp 98.4 F 09/07/23 07:25 Pulse 88 09/07/23 13:11 Resp 16 09/07/23 08:13 BP 120/61 09/07/23 07:25 Pulse Ox 92 L 09/07/23 07:25 FiO2 Intake & Output 09/06/23 09/07/23 09/07/23 18:59 06:59 18:59 Other: Voiding Method Toilet # Voids 3 0 - Exam GENERAL EXAM: Alert, pleasant 63-year-old female, on 3 L nasal cannula, fairly comfortable in no apparent distress. HEAD: Normocephalic. EYES: Normal reaction of pupils, equal size. NOSE: Clear with pink turbinates. THROAT: No erythema or exudates. NECK: No masses, no JVD. CHEST: No chest wall deformity. LUNGS: Equal air entry with bilateral end expiratory wheeze, diminished. CVS: S1 and S2 normal with no audible murmur, regular rhythm. ABDOMEN: No hepatosplenomegaly, normal bowel sounds, no guarding or rigidity. SPINE: No scoliosis or deformity SKIN: No rashes CENTRAL NERVOUS SYSTEM: No focal deficits, tone is normal in all 4 extremities. EXTREMITIES: There is no peripheral edema. No clubbing, no cyanosis. Peripheral pulses are intact. - Labs CBC & Chem 7: 09/06/23 07:41 09/07/23 08:13 Labs: Abnormal Lab Results - Last 24 Hours (Table) 09/06/23 09/07/23 Range/Units 07:41 08:13 Chloride 92 L (98-107) mmol/L Carbon Dioxide 39 H (22-30) mmol/L BUN 20 H (7-17) mg/dL Creatinine 0.50 L (0.52-1.04) mg/dL Glucose 173 H (74-99) mg/dL Procalcitonin 0.28 H (0.02-0.09) ng/mL Microbiology - Last 24 Hours (Table) 09/05/23 19:42 Blood Culture - Preliminary Blood 09/05/23 19:42 Blood Culture - Preliminary Blood Assessment and Plan Assessment: Acute COPD exacerbation. The patient has not been evaluated in the past by primary care physician or pulmonology. CT scan reveals moderate to severe emphysematous changes. Right middle lobe consolidation extends towards the periphery with wedge shaped infiltrate measuring 3.9 x 3.9 cm. Airspace opacities superimposed on the left lower lobe. Scattered nodular densities noted. Acute bilateral community-acquired pneumonia Acute hypoxic respiratory failure secondary to above Acute leukocytosis secondary to above Chronic and ongoing tobacco dependence of nearly 50 years Plan: The patient was seen and evaluated Computed tomography scan of the chest, labs and medications reviewed Continue ceftriaxone Continue bronchodilators, steroids Again educated regarding the importance of complete smoking cessation NicoDerm patches in place Titrate the FiO2 as tolerated Increase her activity as tolerated We will continue to follow I have personally seen and examined the patient, performed the documentation and the assessment and plan as written. Number of minutes spent on the visit: 10.
[2023-09-07 15:35] LABS: Basophils # (A) 0.02 X 10*3/uL (0.00-0.10); Basophils % (A) 0.1 %; Eosinophils # (A) 0 X 10*3/uL (0.04-0.35); Eosinophils % (A) 0 %; HCT 42.6 % (37.2-46.3); HGB 12.6 d/dL (12.0-15.0); Lymphocytes # (A) 0.26 X 10*3/uL (0.90-5.00); Lymphocytes % (A) 1.5 %; MCH 29.5 pg (27.0-32.0); MCHC 29.6 d/dL (32.0-37.0); MCV 99.8 FL (80.0-97.0); Mean Platelet Volume 11.1 FL (9.5-12.2); Monocytes % (A) 1.1 %; NRBC Per 100 WBC 0 X 10*3/uL (0.00-0.01); Neutrophils % (A) 96.8 %; Platelet Count 388 X 10*3/uL (140-440); RBC 4.27 X 10*6/uL (4.10-5.20); RDW 13.4 % (11.5-14.5); WBC 17.67 X 10*3/uL (4.50-10.00)
[2023-09-07 16:19] VITALS: BMI 16.2
--- NOTE | 2023-09-07 19:32 | CA ---
Transthoracic Echo Report Name: Aislinn Mabry Age: 63 Gender: F : 1960 Exam Date: 09/07/2023 16:55 Exam Location: [place] [facility] Ht (in): 69 Wt (lb): 110 Ordering Physician: Cesar Muñiz MD Attending/Referring Phys: Operating Manager Josef Edouard Procedure CPT: Indications: dyspnea, eval for chf Cardiac Hx: Technical Quality: Fair Contrast 1: Total Dose (mL): Contrast 2: Total Dose (mL): MEASUREMENTS (Male / Female) Normal Values 2D ECHO LV Diastolic Diameter PLAX 4.7 cm 4.2 - 5.9 / 3.9 - 5.3 cm LV Systolic Diameter PLAX 3.0 cm IVS Diastolic Thickness 0.8 cm 0.6 - 1.0 / 0.6 - 0.9 cm LVPW Diastolic Thickness 0.9 cm 0.6 - 1.0 / 0.6 - 0.9 cm LV Relative Wall Thickness 0.4 RV Internal Dim ED PLAX 3.1 cm LVOT Diameter 1.8 cm Aortic Root Diameter 2.8 cm LA Systolic Diameter LX 2.2 cm 3.0 - 4.0 / 2.7 - 3.8 cm LV Diastolic Volume MOD BP 50.0 cm??? 67 - 155 / 56 - 104 cm??? LV Systolic Volume MOD BP 16.9 cm??? 22 - 58 / 19 - 49 cm??? LV Ejection Fraction MOD BP 66.3 % >= 55 % LV Cardiac Index MOD BP 1936.4 cm???/min???m??? LV Diastolic Volume MOD 4C 42.4 cm??? LV Systolic Volume MOD 4C 14.7 cm??? LV Ejection Fraction MOD 4C 65.3 % LV Cardiac Index MOD 4C 1617.7 cm???/min???m??? LV Diastolic Length 4C 5.8 cm LV Systolic Length 4C 5.0 cm LV Diastolic Volume MOD 2C 52.5 cm??? LV Systolic Volume MOD 2C 17.3 cm??? LV Ejection Fraction MOD 2C 67.1 % LV Cardiac Index MOD 2C 2059.0 cm???/min???m??? LV Diastolic Length 2C 6.6 cm LV Systolic Length 2C 5.7 cm LA Volume 36.4 cm??? 18 - 58 / 22 - 52 cm??? LA Volume Index 23.6 cm???/m??? 16 - 28 cm???/m??? DOPPLER AV Peak Velocity 154.3 cm/s AV Peak Gradient 9.5 mmHg LVOT Peak Velocity 139.0 cm/s LVOT Peak Gradient 7.7 mmHg LVOT Velocity Time Integral 25.4 cm LVOT Stroke Volume 66.8 cm??? LVOT Stroke Volume Index 41.7 ml/m??? LVOT Cardiac Index 3903.4 cm???/min???m??? AV Area Cont Eq pk 2.4 cm??? MV Peak Velocity 136.7 cm/s MV Peak Gradient 7.5 mmHg MV Mean Velocity 67.9 cm/s MV Mean Gradient 2.4 mmHg MV Velocity Time Integral 37.6 cm MR Peak Velocity 477.6 cm/s MR Peak Gradient 91.3 mmHg Mitral E Point Velocity 93.9 cm/s Mitral A Point Velocity 83.7 cm/s Mitral E to A Ratio 1.1 MV Deceleration Time 152.5 ms MV E' Velocity 9.8 cm/s Mitral E to MV E' Ratio 9.5 TR Peak Velocity 322.1 cm/s TR Peak Gradient 41.5 mmHg Right Ventricular Systolic Press 46.5 mmHg PV Peak Velocity 92.2 cm/s PV Peak Gradient 3.4 mmHg FINDINGS Left Ventricle Normal LV size and wall thickness. Left ventricular ejection fraction is estimated at 55-60 %. Right Ventricle Normal right ventricular size. RVSP=46mmHg. Right Atrium Normal right atrial size. Left Atrium Normal left atrial size. LA volume index= 22.7ml/m2 Mitral Valve Structurally normal mitral valve. Mild MR. Aortic Valve Trileaflet aortic valve. Mild sclerosis/calcification. Tricuspid Valve Structurally normal tricuspid valve. Mild to moderateTR. Pulmonic Valve Pulmonic valve not well visualized. Trace PI. Pericardium Normal pericardium. Aorta Normal size aortic root . CONCLUSIONS Normal LV size and systolic function Aortic sclerosis without stenosis Right ventricular systolic pressure moderately elevated Previewed by: Dr. Bhupinder Mayberry MD (Electronically Signed) Final Date: 07 September 2023 19:31
[2023-09-08] MEDS: SODIUM CHLORIDE 0.9% 1,000 ML IV SCH ×3 (00:44→16:53)
[2023-09-08] MEDS: HEPARIN SODIUM,PORCINE 5,000 UNIT/ML 1 ML VIAL SQ SCH ×3 (00:45→16:52)
[2023-09-08] MEDS: methylPREDNISolone SOD SUCCI 125 MG/2 ML VIAL IV SCH ×4 (00:45→18:04)
[2023-09-08] MEDS: IPRATROPIUM-ALBUTEROL 3 ML NEB INHALATION SCH ×5 (04:18→20:17)
[2023-09-08] MEDS: NICOTINE 21MG/24HR PATCH TRANSDERM SCH (08:00)
[2023-09-08] MEDS: SYMBICORT 160-4.5 MCG INHALER INHALATION SCH ×2 (08:25→20:17)
[2023-09-08] MEDS ORDERED: SODIUM CHLORIDE 0.65% NASAL SPRAY 44 ML BTL NASAL PRN (10:37)
[2023-09-08 11:11] LABS: Basophils # (A) 0.01 X 10*3/uL (0.00-0.10); Basophils % (A) 0.1 %; Eosinophils # (A) 0 X 10*3/uL (0.04-0.35); Eosinophils % (A) 0 %; HCT 41.1 % (37.2-46.3); HGB 12.7 d/dL (12.0-15.0); Lymphocytes # (A) 0.27 X 10*3/uL (0.90-5.00); Lymphocytes % (A) 1.5 %; MCHC 30.9 d/dL (32.0-37.0); MCV 97.2 FL (80.0-97.0); Mean Platelet Volume 11.4 FL (9.5-12.2); Monocytes # (A) 0.24 X 10*3/uL (0.20-1.00); Monocytes % (A) 1.3 %; NRBC Per 100 WBC 0 X 10*3/uL (0.00-0.01); Neutrophils # (A) 17.29 X 10*3/uL (1.80-7.70); Neutrophils % (A) 96.5 %; Platelet Count 373 X 10*3/uL (140-440); RBC 4.23 X 10*6/uL (4.10-5.20); RDW 13.6 % (11.5-14.5); WBC 17.92 X 10*3/uL (4.50-10.00)
[2023-09-08 11:20] LABS: Blood Urea Nitrogen 14.9 mg/dL (9.0-27.0); Calcium 8.5 mg/dL (8.7-10.3); Carbon Dioxide 34.3 mmol/L (21.6-31.8); Chloride 100 mmol/L (96-109); Glucose 117 mg/dL (70-110); Potassium 5.3 mmol/L (3.5-5.5); Sodium 142 mmol/L (135-145)
--- NOTE | 2023-09-08 11:43 | P.PN ---
Subjective Progress Note Date: 09/07/23 Principal diagnosis: Pneumonia Patient is a 63-year-old female with a past medical history significant for COPD current everyday smoker presenting to the hospital for charlene luation of increasing shortness of breath and a cough patient was hypoxic and did have evidence of left lower lobe airspace disease concerning for pneumonia. On today's evaluation that is09/07/2023, the patient denies any fever or any chills, the patient is breathing slightly comfortably on 3 L nasal cannula oxygen, patient denies abdominal pain and no nausea/vomiting /diarrhea,the patient denies chest pain or worsening cough and no sputum production. Patient did have a white count of 17.67 creatinine 0.50, blood cultures are currently pending Objective - Vital Signs Vital signs: Vital Signs Temp 98.4 F 09/07/23 07:25 Pulse 84 09/07/23 09:10 Resp 16 09/07/23 08:13 BP 120/61 09/07/23 07:25 Pulse Ox 92 L 09/07/23 07:25 FiO2 Intake & Output 09/06/23 09/07/23 09/07/23 18:59 06:59 18:59 Other: Voiding Method Toilet # Voids 3 0 - Exam GENERAL DESCRIPTION: A middle-age female up in bed in no distress RESPIRATORY SYSTEM: Unlabored breathing , coarse breath sounds Bilaterally with Occasional Wheeze HEART: S1 S2 regular rate and rhythm , ABDOMEN: Soft , no tenderness EXTREMITIES: No edema feet - Labs CBC & Chem 7: 09/08/23 07:21 09/08/23 07:21 Labs: Abnormal Lab Results - Last 24 Hours (Table) 09/06/23 09/07/23 Range/Units 07:41 08:13 Chloride 92 L (98-107) mmol/L Carbon Dioxide 39 H (22-30) mmol/L BUN 20 H (7-17) mg/dL Creatinine 0.50 L (0.52-1.04) mg/dL Glucose 173 H (74-99) mg/dL Procalcitonin 0.28 H (0.02-0.09) ng/mL Assessment and Plan (1) Pneumonia Current Visit: Yes Status: Acute Code(s): J18.9 - PNEUMONIA, UNSPECIFIED ORGANISM SNOMED Code(s): 628406390 Plan: 1patient presented to hospital with increasing shortness of breath and cough in this patient with evidence of hypoxemia source is likely COPD exacerbation and a component of left lower lobe pneumonia likely community-acquired as the patient has not been on antibiotic in the recent past 2-sputum could not be collected so far , procalcitonin is 0.28 3-patient to continue with Rocephin 1 g daily and Zithromax and monitor clinical course closely Dictation was produced using [employer] dictation software. please excuse any grammatical, word or spelling errors. Time with Patient: Less than 30
--- NOTE | 2023-09-08 11:47 | P.PN ---
Subjective Progress Note Date: 09/08/23 Principal diagnosis: Pneumonia Patient is a 63-year-old female with a past medical history significant for COPD current everyday smoker presenting to the hospital for charlene luation of increasing shortness of breath and a cough patient was hypoxic and did have evidence of left lower lobe airspace disease concerning for pneumonia. On today's evaluation that is 09/08/2023, the patient, the patient remains to be afebrile the patient is breathing comfortably on 2 L nasal cannula oxygen however the patient complains of mostly plugging of her nose, the patient denies having any chest pain continued to have a cough but not bringing up any sputum, patient denies abdominal pain and no nausea/vomiting /diarrhea Patient did have a white count of 17.92, creatinine 0.5, blood cultures are currently pending Objective - Vital Signs Vital signs: Vital Signs Temp 97.9 F 09/08/23 08:00 Pulse 88 09/08/23 08:42 Resp 17 09/08/23 08:00 BP 146/76 09/08/23 08:00 Pulse Ox 88 L 09/08/23 08:00 FiO2 Intake & Output 09/07/23 09/08/23 09/08/23 18:59 06:59 18:59 Weight 49.895 kg Other: Voiding Method Toilet Toilet # Voids 3 2 - Exam GENERAL DESCRIPTION: A middle-age female up in bed in no distress RESPIRATORY SYSTEM: Unlabored breathing , coarse breath sounds Bilaterally with Occasional Wheeze HEART: S1 S2 regular rate and rhythm , ABDOMEN: Soft , no tenderness EXTREMITIES: No edema feet - Labs CBC & Chem 7: 09/08/23 07:21 09/08/23 07:21 Labs: Abnormal Lab Results - Last 24 Hours (Table) 09/07/23 09/08/23 09/08/23 Range/Units 08:13 07:21 07:21 WBC 17.67 H 17.92 H (4.50-10.00) X 10*3/uL MCV 99.8 H 97.2 H (80.0-97.0) FL MCHC 29.6 L 30.9 L (32.0-37.0) d/dL Neutrophils # 17.10 H 17.29 H (1.80-7.70) X 10*3/uL Lymphocytes # 0.26 L 0.27 L (0.90-5.00) X 10*3/uL Eosinophils # 0 L 0 L (0.04-0.35) X 10*3/uL Carbon Dioxide 34.3 H (21.6-31.8) mmol/L Creatinine 0.5 L (0.6-1.5) mg/dL BUN/Creatinine Ratio 29.80 H (12.00-20.00) Ratio Glucose 117 H (70-110) mg/dL Calcium 8.5 L (8.7-10.3) mg/dL Microbiology - Last 24 Hours (Table) 09/05/23 19:42 Blood Culture - Preliminary Blood 09/05/23 19:42 Blood Culture - Preliminary Blood Assessment and Plan (1) Pneumonia Current Visit: Yes Status: Acute Code(s): J18.9 - PNEUMONIA, UNSPECIFIED ORGANISM SNOMED Code(s): 721950903 Plan: 1patient presented to hospital with increasing shortness of breath and cough in this patient with evidence of hypoxemia source is likely COPD exacerbation and a component of left lower lobe pneumonia likely community-acquired as the patient has not been on antibiotic in the recent past, 2-sputum could not be collected so far, patient scheduled for bronchoscopy and lavage this morning , procalcitonin is 0.28 3-with concern for possible post obstructive type of pneumonia, we will discontinue Rocephin and Zithromax, we will start the patient on Unasyn and monitor clinical course closely Dictation was produced using [employer] dictation software. please excuse any grammatical, word or spelling errors. Time with Patient: Less than 30
[2023-09-08] MEDS: ALPRAZolam 0.25 MG TAB PO PRN (12:16)
[2023-09-08] MEDS: AMPICILLIN-SULBACTAM 3 GM in SODIUM CHLORIDE 0.9% 100 ML IVPB SCH ×2 (12:16→18:05)
--- NOTE | 2023-09-08 13:37 | P.PN ---
Subjective Progress Note Date: 09/08/23 This is a 63-year-old female patient, carries [id number]-[id number] smoking history, coming into the hospital because of progressive worsening shortness of breath. Limited cough. No sputum production. No fever. No chills. No hemoptysis. No pleurisy. She has not seen any physician and recently struck to establish herself with Dr. Aggarwal. She doesn't take any form of medications. Does not use oxygen or bronchodilators at home. On admission, the white cell count was elevated at 26 and dropped down to 18. Hemoglobin is at 15.8 with a platelet count of 420. D-dimer is at 2.02. The patient is a BUN of 24 with a creatinine of 0.6 and a potassium level of 5.3 and a sodium level of 137. No previous his tory of Covid 19 infection in her Covid 19 came back negative. The rest of the viral screen was also negative. She did complain of some lower extremity edema. Chest x-ray showed bilateral pulmonary opacities consistent with pneumonia. No history of cardiac disease. No history of CHF. No cardiac arrhythmias. The patient is seen today September 17 in follow-up on the regular medical floor. She is currently sitting up at the bedside. Awake and alert in no acute distress. Maintaining O2 saturations in the 90s on 3 L/m per nasal cannula. Chest x-ray has revealed infiltrates of the right middle lobe and left lower lobe. Computed tomography scan of the chest revealed left lower lung airspace opacities, moderate to severe emphysematous changes, wedge-shaped area of consolidation in the right middle lobe. Scattered nodular densities. She is currently on ceftriaxone. She is continued on bronchodilators and steroids. NicoDerm patch in place. Heparin for DVT prophylaxis. Sodium 137. Potassium 4.9. Bicarb 39. BUN 20. Creatinine 0.50. Pro calcitonin 0.28. Legionella screen negative. The patient is seen today 09/08/2023 in follow-up on the regular medical floor. She is awake and alert in no acute distress. Sitting up at the bedside. Still with a loose cough and congestion. Maintaining O2 saturations in the 90s on 2 L/m per nasal cannula. White count 17.9. Hemoglobin 12.7. Platelets 373. Sodium 142. Potassium 5.3. Bicarb 34. BUN 15. Creatinine 0.5. Glucose 117. COVID-19 screen negative. She is on antibiotics in the form of Unasyn. Continued on Symbicort, DuoNeb inhalations, Solu-Medrol. NicoDerm patch in place. Heparin for DVT prophylaxis. Normal saline at 75 ML's per hour. Plan is for bronchoscopy with BAL today. Objective - Vital Signs Vital signs: Vital Signs Temp 97.9 F 09/08/23 08:00 Pulse 88 09/08/23 12:19 Resp 17 09/08/23 08:00 BP 146/76 09/08/23 08:00 Pulse Ox 88 L 09/08/23 08:00 FiO2 Intake & Output 09/07/23 09/08/23 09/08/23 18:59 06:59 18:59 Weight 49.895 kg Other: Voiding Method Toilet Toilet # Voids 3 2 - Exam GENERAL EXAM: Alert, 63-year-old female, on 2 L nasal cannula, comfortable in no apparent distress. HEAD: Normocephalic. EYES: Normal reaction of pupils, equal size. NOSE: Clear with pink turbinates. THROAT: No erythema or exudates. NECK: No masses, no JVD. CHEST: No chest wall deformity. LUNGS: Equal air entry with bilateral end expiratory wheeze, diminished. CVS: S1 and S2 normal with no audible murmur, regular rhythm. ABDOMEN: No hepatosplenomegaly, normal bowel sounds, no guarding or rigidity. SPINE: No scoliosis or deformity SKIN: No rashes CENTRAL NERVOUS SYSTEM: No focal deficits, tone is normal in all 4 extremities. EXTREMITIES: There is no peripheral edema. No clubbing, no cyanosis. Peripheral pulses are intact. - Labs CBC & Chem 7: 09/08/23 07:21 09/08/23 07:21 Labs: Abnormal Lab Results - Last 24 Hours (Table) 09/07/23 09/08/23 09/08/23 Range/Units 08:13 07:21 07:21 WBC 17.67 H 17.92 H (4.50-10.00) X 10*3/uL MCV 99.8 H 97.2 H (80.0-97.0) FL MCHC 29.6 L 30.9 L (32.0-37.0) d/dL Neutrophils # 17.10 H 17.29 H (1.80-7.70) X 10*3/uL Lymphocytes # 0.26 L 0.27 L (0.90-5.00) X 10*3/uL Eosinophils # 0 L 0 L (0.04-0.35) X 10*3/uL Carbon Dioxide 34.3 H (21.6-31.8) mmol/L Creatinine 0.5 L (0.6-1.5) mg/dL BUN/Creatinine Ratio 29.80 H (12.00-20.00) Ratio Glucose 117 H (70-110) mg/dL Calcium 8.5 L (8.7-10.3) mg/dL Microbiology - Last 24 Hours (Table) 09/05/23 19:42 Blood Culture - Preliminary Blood 09/05/23 19:42 Blood Culture - Preliminary Blood Assessment and Plan Assessment: Acute COPD exacerbation. The patient has not been evaluated in the past by primary care physician or pulmonology. CT scan reveals moderate to severe emphysematous changes. Right middle lobe consolidation extends towards the periphery with wedge shaped infiltrate measuring 3.9 x 3.9 cm. Airspace opacities superimposed on the left lower lobe. Scattered nodular densities noted. Plan is for bronchoscopy with BAL today 09/08/2023 Acute bilateral community-acquired pneumonia, continued on Unasyn Acute hypoxic respiratory failure secondary to above Acute leukocytosis secondary to above Chronic and ongoing tobacco dependence of nearly 50 years Plan: The patient was seen and evaluated Plan is for bronchoscopy with BAL today Labs and medications reviewed Continue Unasyn, bronchodilators, steroids Again educated regarding the importance of complete smoking cessation NicoDerm patch in place Titrate the FiO2 as tolerated We will continue to follow I have personally seen and examined the patient, performed the documentation and the assessment and plan as written. Number of minutes spent on the visit: 10.
[2023-09-09] MEDS: IPRATROPIUM-ALBUTEROL 3 ML NEB INHALATION SCH ×6 (00:11→18:19)
[2023-09-09] MEDS: methylPREDNISolone SOD SUCCI 125 MG/2 ML VIAL IV SCH ×5 (00:42→23:50)
[2023-09-09] MEDS: HEPARIN SODIUM,PORCINE 5,000 UNIT/ML 1 ML VIAL SQ SCH ×4 (00:42→23:50)
[2023-09-09] MEDS: AMPICILLIN-SULBACTAM 3 GM in SODIUM CHLORIDE 0.9% 100 ML IVPB SCH ×5 (00:42→23:50)
[2023-09-09 04:47] LABS: Mycoplasma IgG Antibody (EIA) 1.68 INDEX (<=0.90); Mycoplasma IgM Antibody 0.16 INDEX (<=0.90)
[2023-09-09] MEDS: SODIUM CHLORIDE 0.9% 1,000 ML IV SCH ×2 (05:34→18:36)
[2023-09-09] MEDS: ALPRAZolam 0.25 MG TAB PO PRN ×2 (05:44→19:32)
--- NOTE | 2023-09-09 06:16 | P.PN ---
Subjective Progress Note Date: 09/08/23 This 63-year-old female who was recently admitted with significant shortness of breath with COPD exacerbation as well as acute bilateral pneumonia, community- acquired with pulmonary following. Patient continues to have shortness of breath requiring oxygen maintained on 2 L and cough and inability to expectorate any sputum or phlegm. Patient is maintained on antibiotics with infectious disease following closely and patient was being scheduled for bronchoscopy with BAL. Patient was nothing by mouth although apparently per nursing staff ate half of a candy bar and bronchoscopy was canceled. Patient will be nothing by mouth tomorrow and attempt bronchoscopy again hopefully in the a.m. Patient is currently afebrile with no reported chest pain and continues to report shortness of breath. Patient reports to being extremely hungry Review of systems: Constitutional: No reports of fatigue, fever, or chills Cardiovascular: No reports of chest pain or palpitations Respiratory: reports of shortness of breath and continued dry cough GI: No reports of nausea, no reports of vomiting, reports feeling extremely hungry : No reports of dysuria or retention Neurovascular: No reports of generalized weakness All medications have been reviewed PHYSICAL EXAMINATION: GENERAL: The patient is alert and oriented x4, thin built, cachectic, ill- appearing, elderly appearing HEENT: Pupils are round and equally reacting to light. EOMI. no scleral icterus. No conjunctival pallor. Normocephalic, atraumatic. No pharyngeal erythema. No thyromegaly. CARDIOVASCULAR: S1 and S2 muffled PULMONARY: Extremely diminished breath sounds bilaterally with no wheezing or rhonchi noted. ABDOMEN: soft. Nontender on exam. Thin, scaphoid, non-distended, normoactive bowel sounds. No palpable organomegaly. MUSCULOSKELETAL: No joint swelling or deformity. EXTREMITIES: No cyanosis, clubbing, or pedal edema. NEUROLOGICAL: Gross neurological examination did not reveal any focal deficits. SKIN: No rashes. Assessment: Shortness of breath with acute hypoxic respiratory failure secondary to COPD exa cerbation Acute bilateral ammonia, possibly gram-negative left more than right, community- acquired Continued ongoing nicotine dependence, patient reports smokes at least 2 packs per day Elevated d-dimer, PE ruled out Mild protein calorie malnutrition with a BMI of 16.2 Noncompliance with medications and follow-up GI prophylaxis DVT prophylaxis Full code Plan: Patient is continued on antibiotics along with DuoNeb's and steroids with pulmonary and infectious disease following. Pulmonary was planning on rhonchi steady although patient ate something and bronchoscopy was canceled and rescheduled for 09/09/2023. Patient educated on the importance of strict nothing by mouth for procedures Patient is having difficulty in breathing requiring oxygen currently at 2 L and recommend to wean FiO2 as tolerated. Patient reports she is unable to get any air in and has significant upper respiratory congestion. Per respiratory unable to provide humidification as patient is only on 2 L and would require more oxygen. Oxygen saturations are above 90% on 2 L. Nasal spray being admitted and will add Claritin Tobacco cessation counseled and patient is currently maintained on 21 mg nicotine patch requesting this isn't enough and will add Nicorette gum when necessary once bronchoscopy is performed. The impression and plan of care has been dictated by Estefani Parr, nurse practitioner as directed. Dr. Parrish MD I have performed a history and examination and MDM of this patient, discussed the same with the dictator, and agree with the dictator's assessment and plan as written ,documented as a scribe. Based on total visit time, I have performed more than 50% of the visit. Any additional findings or plans will be noted. Objective - Vital Signs Vital signs: Vital Signs Temp 98.3 F 09/09/23 02:00 Pulse 100 09/09/23 04:10 Resp 17 09/08/23 20:00 BP 141/69 09/09/23 02:00 Pulse Ox 95 09/09/23 02:00 FiO2 Intake & Output 09/08/23 09/08/23 09/09/23 06:59 18:59 06:59 Other: Voiding Method Toilet # Voids 2 2 - Labs CBC & Chem 7: 09/08/23 07:21 09/08/23 07:21 Labs: Abnormal Lab Results - Last 24 Hours (Table) 09/07/23 09/08/23 09/08/23 Range/Units 08:13 07:21 07:21 WBC 17.92 H (4.50-10.00) X 10*3/uL MCV 97.2 H (80.0-97.0) FL MCHC 30.9 L (32.0-37.0) d/dL Neutrophils # 17.29 H (1.80-7.70) X 10*3/uL Lymphocytes # 0.27 L (0.90-5.00) X 10*3/uL Eosinophils # 0 L (0.04-0.35) X 10*3/uL Carbon Dioxide 34.3 H (21.6-31.8) mmol/L Creatinine 0.5 L (0.6-1.5) mg/dL BUN/Creatinine Ratio 29.80 H (12.00-20.00) Ratio Glucose 117 H (70-110) mg/dL Calcium 8.5 L (8.7-10.3) mg/dL Mycoplasma pneumon IgG 1.68 H (<=0.90) INDEX Microbiology - Last 24 Hours (Table) 09/05/23 19:42 Blood Culture - Preliminary Blood 09/05/23 19:42 Blood Culture - Preliminary Blood
[2023-09-09] MEDS: SYMBICORT 160-4.5 MCG INHALER INHALATION SCH ×2 (07:58→18:19)
[2023-09-09] MEDS: LORATADINE 10 MG TAB PO SCH (09:07)
[2023-09-09] MEDS: NICOTINE 21MG/24HR PATCH TRANSDERM SCH (09:07)
[2023-09-09] MEDS ORDERED: IV FLUID CONTINUATION 400 ML IV ONE (12:09)
[2023-09-09] MEDS ORDERED: PROPOFOL 10 MG/ML 20 ML VIAL IV ONE (12:10)
[2023-09-09] MEDS ORDERED: MIDAZOLAM 2 MG/2 ML VIAL ONE (12:10)
[2023-09-09] MEDS ORDERED: fentaNYL (PF) 50 MCG/ML 2 ML AMP ONE (12:10)
[2023-09-09] MEDS ORDERED: LIDOCAINE 2% (PF) 20 MG/ML 5 ML VIAL ONE (12:10)
--- NOTE | 2023-09-09 12:21 | P.PN ---
Subjective Progress Note Date: 09/09/23 Principal diagnosis: Pneumonia Patient is a 63-year-old female with a past medical history significant for COPD current everyday smoker presenting to the hospital for charlene luation of increasing shortness of breath and a cough patient was hypoxic and did have evidence of left lower lobe airspace disease concerning for pneumonia. On today's evaluation that is 09/09/2023, the patient denies any fever or any chills, the patient is breathing comfortably on 3 L nasal cannula supplemental oxygen, the patient denies chest pain or worsening cough, patient denies nausea/vomiting and no diarrhea has been reported Patient did have a white count of 17.92, creatinine 0.5 as of yesterday, blood cultures are currently pending Objective - Vital Signs Vital signs: Vital Signs Temp 97.7 F 09/09/23 07:20 Pulse 92 09/09/23 11:43 Resp 16 09/09/23 07:20 BP 156/91 09/09/23 07:20 Pulse Ox 94 L 09/09/23 08:00 FiO2 Intake & Output 09/08/23 09/09/23 09/09/23 18:59 06:59 18:59 Other: Voiding Method Toilet Toilet # Voids 2 - Exam GENERAL DESCRIPTION: A middle-age female up in bed in no distress RESPIRATORY SYSTEM: Unlabored breathing , coarse breath sounds Bilaterally with Occasional Wheeze HEART: S1 S2 regular rate and rhythm , ABDOMEN: Soft , no tenderness EXTREMITIES: No edema feet - Labs CBC & Chem 7: 09/08/23 07:21 09/08/23 07:21 Labs: Abnormal Lab Results - Last 24 Hours (Table) 09/07/23 Range/Units 08:13 Mycoplasma pneumon IgG 1.68 H (<=0.90) INDEX Microbiology - Last 24 Hours (Table) 09/05/23 19:42 Blood Culture - Preliminary Blood 09/05/23 19:42 Blood Culture - Preliminary Blood Assessment and Plan (1) Pneumonia Current Visit: Yes Status: Acute Code(s): J18.9 - PNEUMONIA, UNSPECIFIED ORGANISM SNOMED Code(s): 871003279 Plan: 1patient presented to hospital with increasing shortness of breath and cough in this patient with evidence of hypoxemia source is likely COPD exacerbation and a component of left lower lobe pneumonia likely community-acquired as the patient has not been on antibiotic in the recent past, 2-sputum could not be collected so far, patient scheduled for bronchoscopy and lavage this afternoon as the patient did eat and has to be canceled for yesterday 3-with concern for possible post obstructive type of pneumonia, patient to continue with Unasyn and monitor clinical course closely Dictation was produced using [employer] dictation software. please excuse any grammatical, word or spelling errors. Time with Patient: Less than 30
[2023-09-09] MEDS ORDERED: LIDOCAINE 2% INJ 20 MG/ML INTRATRACH ONE (12:22)
--- NOTE | 2023-09-09 13:26 | P.PN ---
Subjective Progress Note Date: 09/09/23 This is a 63-year-old female patient, carries [id number] smoking history, coming into the hospital because of progressive worsening shortness of breath. Limited cough. No sputum production. No fever. No chills. No hemoptysis. No pleurisy. She has not seen any physician and recently struck to establish herself with Dr. Aggarwal. She doesn't take any form of medications. Does not use oxygen or bronchodilators at home. On admission, the white cell count was elevated at 26 and dropped down to 18. Hemoglobin is at 15.8 with a platelet count of 420. D-dimer is at 2.02. The patient is a BUN of 24 with a creatinine of 0.6 and a potassium level of 5.3 and a sodium level of 137. No previous his tory of Covid 19 infection in her Covid 19 came back negative. The rest of the viral screen was also negative. She did complain of some lower extremity edema. Chest x-ray showed bilateral pulmonary opacities consistent with pneumonia. No history of cardiac disease. No history of CHF. No cardiac arrhythmias. The patient is seen today September 17 in follow-up on the regular medical floor. She is currently sitting up at the bedside. Awake and alert in no acute distress. Maintaining O2 saturations in the 90s on 3 L/m per nasal cannula. Chest x-ray has revealed infiltrates of the right middle lobe and left lower lobe. Computed tomography scan of the chest revealed left lower lung airspace opacities, moderate to severe emphysematous changes, wedge-shaped area of consolidation in the right middle lobe. Scattered nodular densities. She is currently on ceftriaxone. She is continued on bronchodilators and steroids. NicoDerm patch in place. Heparin for DVT prophylaxis. Sodium 137. Potassium 4.9. Bicarb 39. BUN 20. Creatinine 0.50. Pro calcitonin 0.28. Legionella screen negative. The patient is seen today 09/08/2023 in follow-up on the regular medical floor. She is awake and alert in no acute distress. Sitting up at the bedside. Still with a loose cough and congestion. Maintaining O2 saturations in the 90s on 2 L/m per nasal cannula. White count 17.9. Hemoglobin 12.7. Platelets 373. Sodium 142. Potassium 5.3. Bicarb 34. BUN 15. Creatinine 0.5. Glucose 117. COVID-19 screen negative. She is on antibiotics in the form of Unasyn. Continued on Symbicort, DuoNeb inhalations, Solu-Medrol. NicoDerm patch in place. Heparin for DVT prophylaxis. Normal saline at 75 ML's per hour. Plan is for bronchoscopy with BAL today. The patient is seen today 09/09/2023 in follow-up on the regular medical floor. She is sitting up in bed. Awake and alert in no acute distress. The plan is for bronchoscopy with BAL today as the patient ate and drank prior to her procedure yesterday. She again verbalizes understanding. She is continued on Symbicort, DuoNeb inhalations, Solu-Medrol. She is improving today compared to yesterday. She is on antibiotics in the form of Unasyn. Heparin for DVT prophylaxis. NicoDerm patch and place. Objective - Vital Signs Vital signs: Vital Signs Temp 97.7 F 09/09/23 13:07 Pulse 90 09/09/23 13:07 Resp 16 09/09/23 13:07 BP 158/85 09/09/23 13:07 Pulse Ox 95 09/09/23 13:07 FiO2 Intake & Output 09/08/23 09/09/23 09/09/23 18:59 06:59 18:59 Intake Total 100 Balance 100 Weight 49.895 kg Intake: IV 100 Other: Voiding Method Toilet Toilet # Voids 2 - Exam GENERAL EXAM: Alert, pleasant 63-year-old female, on 3 L nasal cannula, comfortable in no apparent distress. HEAD: Normocephalic. EYES: Normal reaction of pupils, equal size. NOSE: Clear with pink turbinates. THROAT: No erythema or exudates. NECK: No masses, no JVD. CHEST: No chest wall deformity. LUNGS: Equal air entry with bilateral end expiratory wheeze, diminished. CVS: S1 and S2 normal with no audible murmur, regular rhythm. ABDOMEN: No hepatosplenomegaly, normal bowel sounds, no guarding or rigidity. SPINE: No scoliosis or deformity SKIN: No rashes CENTRAL NERVOUS SYSTEM: No focal deficits, tone is normal in all 4 extremities. EXTREMITIES: There is no peripheral edema. No clubbing, no cyanosis. Peripheral pulses are intact. - Labs CBC & Chem 7: 09/08/23 07:21 09/08/23 07:21 Labs: Abnormal Lab Results - Last 24 Hours (Table) 09/07/23 Range/Units 08:13 Mycoplasma pneumon IgG 1.68 H (<=0.90) INDEX Microbiology - Last 24 Hours (Table) 09/05/23 19:42 Blood Culture - Preliminary Blood 09/05/23 19:42 Blood Culture - Preliminary Blood Assessment and Plan Assessment: Acute COPD exacerbation. The patient has not been evaluated in the past by primary care physician or pulmonology. CT scan reveals moderate to severe emphysematous changes. Right middle lobe consolidation extends towards the adilia phery with wedge shaped infiltrate measuring 3.9 x 3.9 cm. Airspace opacities superimposed on the left lower lobe. Scattered nodular densities noted. Plan is for bronchoscopy with BAL today 09/09/2023 Acute bilateral community-acquired pneumonia, continued on Unasyn Acute hypoxic respiratory failure secondary to above Acute leukocytosis secondary to above Chronic and ongoing tobacco dependence of nearly 50 years Plan: The patient was seen and evaluated Plan is for bronchoscopy with BAL today Medications reviewed Continue Unasyn, bronchodilators, steroids Titrate the FiO2 as tolerated Possible discharge in the a.m. We will continue to follow I have personally seen and examined the patient, performed the documentation and the assessment and plan as written. Number of minutes spent on the visit: 10.
--- NOTE | 2023-09-09 13:38 | OP ---
OPERATIVE REPORT DATE OF SERVICE : PROCEDURES PERFORMED: Bronchoscopy and bronchoalveolar lavage of the left lower lobe and right middle lobe. PREOPERATIVE DIAGNOSES: Acute right middle lobe and left lower lobe pneumonia. POSTOPERATIVE DIAGNOSIS: Acute left lower lobe pneumonia. ANESTHESIA USED: IV conscious sedation. DESCRIPTION OF PROCEDURE: The patient was prepared according to the bronchoscopy protocol. She was brought into the bronchoscopy suite, O2 was applied via Ventimask, we monitored her O2 saturation continuously. Cardiac rhythm was continuously monitored and her blood pressure was intermittently monitored. After IV conscious sedation, the lidocaine was instilled into the left naris and the bronchoscope was advanced through the left naris up to the area of the vocal cords. The vocal cords were noted to be patent and no lesions noted on the vocal cords. Lidocaine was instilled over the vocal cords and the bronchoscope was advanced further down. Thorough examination was done of the trachea, milagro, right upper lobe, right middle lobe, right lower lobe, left upper lobe, left lingula and left lower lobe. There was mostly significant purulent secretions noted in the left lower lobe, and scattered minimal secretions everywhere else, but most of the secretions were noted mostly in the left lower lobe. Bronchoalveolar lavage of the left lower lobe was performed, and a bronchoalveolar lavage of the right middle lobe was done. The procedure was tolerated, fluid was sent for different diagnostic studies. No complications. MMODL / IJN: [id number] /
[2023-09-09] MEDS ORDERED: IPRATROPIUM-ALBUTEROL 3 ML NEB INHALATION PRN (20:26)
[2023-09-10] MEDS ORDERED: NICOTINE GUM (POLACRILEX) 2 MG GUM BUCCAL PRN (01:16)
--- NOTE | 2023-09-10 01:23 | P.PN ---
Subjective Progress Note Date: 09/09/23 This 63-year-old female who was recently admitted with significant shortness of breath with COPD exacerbation as well as acute bilateral pneumonia, community- acquired with pulmonary following. Patient continues to have shortness of breath requiring oxygen maintained on 2 L and cough and inability to expectorate any sputum or phlegm. Patient is maintained on antibiotics with infectious disease following closely and patient was being scheduled for bronchoscopy with BAL. Patient was nothing by mouth although apparently per nursing staff ate half of a candy bar and bronchoscopy was canceled. Patient will be nothing by mouth tomorrow and attempt bronchoscopy again hopefully in the a.m. Patient is currently afebrile with no reported chest pain and continues to report shortness of breath. Patient reports to being extremely hungry 09/09/2023 Patient is seen and evaluated and follow-up with pulmonary and infectious disease following. Plan is for bronchoscopy sometime early this afternoon and patient is nothing by mouth currently. Patient instructed on strict importance of nothing by mouth until after the procedure. Patient remained on 2 L via nasal cannula and oxygen saturations at 90%. Will need to evaluate for possible home O2 although extremely apprehensive as patient smokes at least 2 packs per day and unsure if she will be compliant with this. Encouraged increased activity as tolerated and continue breathing treatments along with IV steroids. Patient is also continued on antibiotics in the form of Unasyn and awaiting bronchoscopy fluid analysis. Patient is afebrile with no reports of chest pain or palpitations. Review of systems: Constitutional: No reports of fatigue, fever, or chills Cardiovascular: No reports of chest pain or palpitations Respiratory: reports of shortness of breath and continued dry cough GI: No reports of nausea, no reports of vomiting, reports feeling extremely hungry : No reports of dysuria or retention Neurovascular: No reports of generalized weakness All medications have been reviewed PHYSICAL EXAMINATION: GENERAL: The patient is alert and oriented x4, thin built, cachectic, ill- appearing, elderly appearing HEENT: Pupils are round and equally reacting to light. EOMI. no scleral icterus. No conjunctival pallor. Normocephalic, atraumatic. No pharyngeal erythema. No thyromegaly. CARDIOVASCULAR: S1 and S2 muffled PULMONARY: Extremely diminished breath sounds bilaterally with no significant wheezing , coarse scattered rhonchi noted. ABDOMEN: soft. Nontender on exam. Thin, scaphoid, non-distended, normoactive bowel sounds. No palpable organomegaly. MUSCULOSKELETAL: No joint swelling or deformity. EXTREMITIES: No cyanosis, clubbing, or pedal edema. NEUROLOGICAL: Gross neurological examination did not reveal any focal deficits. SKIN: No rashes. Assessment: Shortness of breath with acute hypoxic respiratory failure secondary to COPD exacerbation Acute bilateral pneumonia, possibly gram-negative left more than right, community-acquired Continued ongoing nicotine dependence, patient reports smokes at least 2 packs per day Elevated d-dimer, PE ruled out Mild protein calorie malnutrition with a BMI of 16.2 Noncompliance with medications and follow-up GI prophylaxis DVT prophylaxis Full code Plan: Patient is continued on antibiotics along with DuoNeb's and steroids with pulmonary and infectious disease following. Pulmonary has bronchoscopy scheduled for today and pending at this time. Patien t educated on the importance of strict nothing by mouth for procedures Patient is having continued shortness of breath requiring oxygen currently at 2 L and recommend to wean FiO2 as tolerated. Encourage weaning as patient does not normally wear oxygen outpatient and patient continues to smoke at least 2 packs per day high risk for injury with oxygen at home Potassium noted to be slightly elevated at 5.0 and recommend low potassium diet and follow-up plans Tobacco cessation counseled and patient is currently maintained on 21 mg nicotine patch requesting this isn't enough and will add Nicorette gum when necessary Encouraged increased activity as tolerated. We'll discuss further with consultations about possible discharge planning the next 24-48 hours. The impression and plan of care has been dictated by Estefani Parr, nurse practitioner as directed. Dr. Parrish MD I have performed a history and examination and MDM of this patient, discussed the same with the dictator, and agree with the dictator's assessment and plan as written ,documented as a scribe. Based on total visit time, I have performed more than 50% of the visit. Any additional findings or plans will be noted. Objective - Vital Signs Vital signs: Vital Signs Temp 98.2 F 09/09/23 20:03 Pulse 105 H 09/09/23 20:03 Resp 18 09/09/23 20:03 BP 145/73 09/09/23 20:03 Pulse Ox 91 L 09/09/23 20:03 FiO2 Intake & Output 09/09/23 09/09/23 09/10/23 06:59 18:59 06:59 Intake Total 200 Balance 200 Intake: IV 200 Other: Voiding Method Toilet # Voids 2 5 - Labs CBC & Chem 7: 09/08/23 07:21 09/08/23 07:21 Labs: Abnormal Lab Results - Last 24 Hours (Table) 09/07/23 Range/Units 08:13 Mycoplasma pneumon IgG 1.68 H (<=0.90) INDEX Microbiology - Last 24 Hours (Table) 09/05/23 19:42 Blood Culture - Preliminary Blood 09/05/23 19:42 Blood Culture - Preliminary Blood
[2023-09-10] MEDS: AMPICILLIN-SULBACTAM 3 GM in SODIUM CHLORIDE 0.9% 100 ML IVPB SCH ×3 (05:41→17:01)
[2023-09-10] MEDS: methylPREDNISolone SOD SUCCI 125 MG/2 ML VIAL IV SCH ×3 (05:42→17:01)
[2023-09-10] MEDS: ALPRAZolam 0.25 MG TAB PO PRN ×3 (06:01→19:46)
[2023-09-10] MEDS: LORATADINE 10 MG TAB PO SCH (08:22)
[2023-09-10] MEDS: HEPARIN SODIUM,PORCINE 5,000 UNIT/ML 1 ML VIAL SQ SCH ×2 (08:22→17:00)
[2023-09-10] MEDS: NICOTINE 21MG/24HR PATCH TRANSDERM SCH (08:23)
[2023-09-10] MEDS: amLODIPine 5 MG TAB PO SCH (08:49)
[2023-09-10] MEDS: IPRATROPIUM-ALBUTEROL 3 ML NEB INHALATION SCH ×4 (08:50→21:07)
[2023-09-10] MEDS: SYMBICORT 160-4.5 MCG INHALER INHALATION SCH ×2 (08:50→21:07)
[2023-09-10 11:31] LABS: Blood Urea Nitrogen 14.4 mg/dL (9.0-27.0); Calcium 8.4 mg/dL (8.7-10.3); Carbon Dioxide 30.5 mmol/L (21.6-31.8); Chloride 99 mmol/L (96-109); Glucose 114 mg/dL (70-110); Magnesium 1.7 mg/dL (1.5-2.4); Potassium 5.1 mmol/L (3.5-5.5); Sodium 144 mmol/L (135-145)
--- NOTE | 2023-09-10 13:11 | P.PN ---
Subjective Progress Note Date: 09/10/23 This is a 63-year-old female patient, carries [id number] smoking history, coming into the hospital because of progressive worsening shortness of breath. Limited cough. No sputum production. No fever. No chills. No hemoptysis. No pleurisy. She has not seen any physician and recently struck to establish herself with Dr. Aggarwal. She doesn't take any form of medications. Does not use oxygen or bronchodilators at home. On admission, the white cell count was elevated at 26 and dropped down to 18. Hemoglobin is at 15.8 with a platelet count of 420. D-dimer is at 2.02. The patient is a BUN of 24 with a creatinine of 0.6 and a potassium level of 5.3 and a sodium level of 137. No previous his tory of Covid 19 infection in her Covid 19 came back negative. The rest of the viral screen was also negative. She did complain of some lower extremity edema. Chest x-ray showed bilateral pulmonary opacities consistent with pneumonia. No history of cardiac disease. No history of CHF. No cardiac arrhythmias. The patient is seen today September 17 in follow-up on the regular medical floor. She is currently sitting up at the bedside. Awake and alert in no acute distress. Maintaining O2 saturations in the 90s on 3 L/m per nasal cannula. Chest x-ray has revealed infiltrates of the right middle lobe and left lower lobe. Computed tomography scan of the chest revealed left lower lung airspace opacities, moderate to severe emphysematous changes, wedge-shaped area of consolidation in the right middle lobe. Scattered nodular densities. She is currently on ceftriaxone. She is continued on bronchodilators and steroids. NicoDerm patch in place. Heparin for DVT prophylaxis. Sodium 137. Potassium 4.9. Bicarb 39. BUN 20. Creatinine 0.50. Pro calcitonin 0.28. Legionella screen negative. The patient is seen today 09/08/2023 in follow-up on the regular medical floor. She is awake and alert in no acute distress. Sitting up at the bedside. Still with a loose cough and congestion. Maintaining O2 saturations in the 90s on 2 L/m per nasal cannula. White count 17.9. Hemoglobin 12.7. Platelets 373. Sodium 142. Potassium 5.3. Bicarb 34. BUN 15. Creatinine 0.5. Glucose 117. COVID-19 screen negative. She is on antibiotics in the form of Unasyn. Continued on Symbicort, DuoNeb inhalations, Solu-Medrol. NicoDerm patch in place. Heparin for DVT prophylaxis. Normal saline at 75 ML's per hour. Plan is for bronchoscopy with BAL today. The patient is seen today 09/09/2023 in follow-up on the regular medical floor. She is sitting up in bed. Awake and alert in no acute distress. The plan is for bronchoscopy with BAL today as the patient ate and drank prior to her procedure yesterday. She again verbalizes understanding. She is continued on Symbicort, DuoNeb inhalations, Solu-Medrol. She is improving today compared to yesterday. She is on antibiotics in the form of Unasyn. Heparin for DVT prophylaxis. NicoDerm patch and place. The patient is seen today 09/10/2023 in follow-up on the regular medical floor. She is sitting up in a chair. Awake and alert in no acute distress. Breathing easier today as compared to yesterday. Still with a congested cough. No fever or chills. Maintaining O2 saturations in the 90s on 3 L/m per nasal cannula. She's been afebrile. Blood cultures reveal no growth. Sodium 144. Potassium 5.1. Bicarb 30. BUN 14. Creatinine 0.6. Glucose 114. She is continued on Unasyn. She did have a bronchoscopy with BAL yesterday. Cultures pending. Cytology pending. She is continued on DuoNeb inhalations, Symbicort, IV Solu- Medrol. NicoDerm patch in place. Also utilizing Nicorette gum. Heparin for DVT prophylaxis. Objective - Vital Signs Vital signs: Vital Signs Temp 98.8 F 09/10/23 12:52 Pulse 93 09/10/23 12:52 Resp 19 09/10/23 12:52 BP 167/79 09/10/23 12:52 Pulse Ox 93 L 09/10/23 12:52 FiO2 Intake & Output 09/09/23 09/10/23 09/10/23 18:59 06:59 18:59 Intake Total 200 Balance 200 Intake: IV 200 Other: Voiding Method Toilet # Voids 5 2 - Exam GENERAL EXAM: Alert, 63-year-old female, up in a chair, on 3 L nasal cannula, comfortable in no apparent distress. HEAD: Normocephalic. EYES: Normal reaction of pupils, equal size. NOSE: Clear with pink turbinates. THROAT: No erythema or exudates. NECK: No masses, no JVD. CHEST: No chest wall deformity. LUNGS: Equal air entry with bilateral end expiratory wheeze, diminished. CVS: S1 and S2 normal with no audible murmur, regular rhythm. ABDOMEN: No hepatosplenomegaly, normal bowel sounds, no guarding or rigidity. SPINE: No scoliosis or deformity SKIN: No rashes CENTRAL NERVOUS SYSTEM: No focal deficits, tone is normal in all 4 extremities. EXTREMITIES: There is no peripheral edema. No clubbing, no cyanosis. Peripheral pulses are intact. - Labs CBC & Chem 7: 09/08/23 07:21 09/10/23 06:43 Labs: Abnormal Lab Results - Last 24 Hours (Table) 09/10/23 Range/Units 06:43 Anion Gap 14.50 H (4.00-12.00) mmol/L BUN/Creatinine Ratio 24.00 H (12.00-20.00) Ratio Glucose 114 H (70-110) mg/dL Calcium 8.4 L (8.7-10.3) mg/dL Microbiology - Last 24 Hours (Table) 09/05/23 19:42 Blood Culture - Preliminary Blood 09/05/23 19:42 Blood Culture - Preliminary Blood Assessment and Plan Assessment: Acute COPD exacerbation. The patient has not been evaluated in the past by primary care physician or pulmonology. CT scan reveals moderate to severe emphysematous changes. Right middle lobe consolidation extends towards the periphery with wedge shaped infiltrate measuring 3.9 x 3.9 cm. Airspace opaci ties superimposed on the left lower lobe. Scattered nodular densities noted. Bronchoscopy with BAL performed on 09/09/2023. Cultures and cytology pending. Acute bilateral community-acquired pneumonia, continued on Unasyn Acute hypoxic respiratory failure secondary to above Acute leukocytosis secondary to above Chronic and ongoing tobacco dependence of nearly 50 years Plan: The patient was seen and evaluated Medications and labs reviewed Bronchial wash cultures and cytology pending Continue Unasyn for now Titrate the FiO2 as tolerated May need to be evaluated for home oxygen Continued on NicoDerm and Nicorette gum We will continue to follow I have personally seen and examined the patient, performed the documentation and the assessment and plan as written. Number of minutes spent on the visit: 10.
--- NOTE | 2023-09-10 16:23 | P.PN ---
Subjective Progress Note Date: 09/10/23 Principal diagnosis: Pneumonia Patient is a 63-year-old female with a past medical history significant for COPD current everyday smoker presenting to the hospital for charlene luation of increasing shortness of breath and a cough patient was hypoxic and did have evidence of left lower lobe airspace disease concerning for pneumonia. On today's evaluation that is 09/10/2023, the patient remains to be afebrile the patient is breathing comfortably on 3 L, the patient denies chest pain and no worsening cough or sputum production, patient denies nausea/vomiting and no diarrhea, no new symptoms Patient did have a white count of 17.92, creatinine 0.5 as of 09/08/2023, blood cultures are currently pending Objective - Vital Signs Vital signs: Vital Signs Temp 97.9 F 09/10/23 13:47 Pulse 97 09/10/23 13:47 Resp 16 09/10/23 13:47 BP 107/60 09/10/23 13:47 Pulse Ox 97 09/10/23 13:47 FiO2 Intake & Output 09/09/23 09/10/23 09/10/23 18:59 06:59 18:59 Intake Total 200 Balance 200 Intake: IV 200 Other: Voiding Method Toilet Toilet # Voids 5 2 - Exam GENERAL DESCRIPTION: A middle-age female up in bed in no distress RESPIRATORY SYSTEM: Unlabored breathing , coarse breath sounds Bilaterally with Occasional Wheeze HEART: S1 S2 regular rate and rhythm , ABDOMEN: Soft , no tenderness EXTREMITIES: No edema feet - Labs CBC & Chem 7: 09/08/23 07:21 09/10/23 06:43 Labs: Abnormal Lab Results - Last 24 Hours (Table) 09/10/23 Range/Units 06:43 Anion Gap 14.50 H (4.00-12.00) mmol/L BUN/Creatinine Ratio 24.00 H (12.00-20.00) Ratio Glucose 114 H (70-110) mg/dL Calcium 8.4 L (8.7-10.3) mg/dL Microbiology - Last 24 Hours (Table) 09/05/23 19:42 Blood Culture - Preliminary Blood 09/05/23 19:42 Blood Culture - Preliminary Blood Assessment and Plan (1) Pneumonia Current Visit: Yes Status: Acute Code(s): J18.9 - PNEUMONIA, UNSPECIFIED ORGANISM SNOMED Code(s): 185934707 Plan: 1patient presented to hospital with increasing shortness of breath and cough in this patient with evidence of hypoxemia source is likely COPD exacerbation and a component of left lower lobe pneumonia likely community-acquired as the patient has not been on antibiotic in the recent past, 2-sputum could not be collected so far, patient scheduled for bronchoscopy and lavage and cultures are currently pending 3- patient to continue with Unasyn while waiting for the BAL cultures to be finalize Dictation was produced using [employer] dictation software. please excuse any grammatical, word or spelling errors. Time with Patient: Less than 30
[2023-09-11] MEDS: methylPREDNISolone SOD SUCCI 125 MG/2 ML VIAL IV SCH ×4 (00:28→16:45)
[2023-09-11] MEDS: HEPARIN SODIUM,PORCINE 5,000 UNIT/ML 1 ML VIAL SQ SCH ×3 (00:28→16:44)
[2023-09-11] MEDS: AMPICILLIN-SULBACTAM 3 GM in SODIUM CHLORIDE 0.9% 100 ML IVPB SCH ×4 (00:29→16:45)
--- NOTE | 2023-09-11 05:27 | P.PN ---
Subjective Progress Note Date: 09/10/23 This 63-year-old female who was recently admitted with significant shortness of breath with COPD exacerbation as well as acute bilateral pneumonia, community- acquired with pulmonary following. Patient continues to have shortness of breath requiring oxygen maintained on 2 L and cough and inability to expectorate any sputum or phlegm. Patient is maintained on antibiotics with infectious disease following closely and patient was being scheduled for bronchoscopy with BAL. Patient was nothing by mouth although apparently per nursing staff ate half of a candy bar and bronchoscopy was canceled. Patient will be nothing by mouth tomorrow and attempt bronchoscopy again hopefully in the a.m. Patient is currently afebrile with no reported chest pain and continues to report shortness of breath. Patient reports to being extremely hungry 09/09/2023 Patient is seen and evaluated and follow-up with pulmonary and infectious disease following. Plan is for bronchoscopy sometime early this afternoon and patient is nothing by mouth currently. Patient instructed on strict importance of nothing by mouth until after the procedure. Patient remained on 2 L via nasal cannula and oxygen saturations at 90%. Will need to evaluate for possible home O2 although extremely apprehensive as patient smokes at least 2 packs per day and unsure if she will be compliant with this. Encouraged increased activity as tolerated and continue breathing treatments along with IV steroids. Patient is also continued on antibiotics in the form of Unasyn and awaiting bronchoscopy fluid analysis. Patient is afebrile with no reports of chest pain or palpitations. 09/10/2023 Patient seen in follow-up this morning reporting feeling better and breathing easier. Patient appears more calm and less anxious. Patient having some elevated blood pressure readings into the 170s systolic and reports significant family history of blood pressure but she was never diagnosed with hypertension. Will initiate Norvasc 5 mg and monitor. Patient being followed by infectious disease along with pulmonary and is status post bronchoscopy awaiting BAL cultures. Patient is afebrile with reports of chest pain or shortness of breath is worsened. Patient is continued on 2-3 L of oxygen and discussed with nursing staff along with patient about weaning and performing home O2 eval tomorrow. Case management is following range for nebulizer as well as possible home oxygen. Patient is maintained on IV antibiotics and awaiting cultures. Review of systems: Constitutional: No reports of fatigue, fever, or chills Cardiovascular: No reports of chest pain or palpitations Respiratory: reports of shortness of breath that is improving, continued dry cough with not much phlegm coming up GI: No reports of nausea, no reports of vomiting : No reports of dysuria or retention Neurovascular: No reports of generalized weakness All medications have been reviewed PHYSICAL EXAMINATION: GENERAL: The patient is alert and oriented x4, thin built, cachectic, ill- appearing, elderly appearing HEENT: Pupils are round and equally reacting to light. EOMI. no scleral icterus. No conjunctival pallor. Normocephalic, atraumatic. No pharyngeal erythema. No thyromegaly. CARDIOVASCULAR: S1 and S2 muffled PULMONARY: diminished breath sounds bilaterally with no significant wheezing , coarse scattered rhonchi noted. Improvement in aeration ABDOMEN: soft. Nontender on exam. Thin, scaphoid, non-distended, normoactive bowel sounds. No palpable organomegaly. MUSCULOSKELETAL: No joint swelling or deformity. EXTREMITIES: No cyanosis, clubbing, or pedal edema. NEUROLOGICAL: Gross neurological examination did not reveal any focal deficits. SKIN: No rashes. Assessment: Shortness of breath with acute hypoxic respiratory failure secondary to COPD exacerbation Acute bilateral pneumonia, possibly gram-negative left more than right, community-acquired Continued ongoing nicotine dependence, patient reports smokes at least 2 packs per day Elevated d-dimer, PE ruled out Mild protein calorie malnutrition with a BMI of 16.2 Noncompliance with medications and follow-up Hypertension GI prophylaxis DVT prophylaxis Full code Plan: Patient is continued on antibiotics along with DuoNeb's and steroids with pulmonary and infectious disease following. Pulmonary is status post bronchoscopy and awaiting BAL cultures maintained on antibiotics. Patient is having continued shortness of breath requiring oxygen currently at 2 L and recommend to wean FiO2 as tolerated. Encourage weaning as patient does not normally wear oxygen outpatient and patient continues to smoke at least 2 packs per day high risk for injury with oxygen at home. Discussed with nursing staff about weaning and assessing home O2 eval tomorrow Potassium noted to be slightly elevated at 5.0 and recommend low potassium diet and follow-up with Tobacco cessation counseled and patient is currently maintained on 21 mg nicotine patch and Nicorette gum when necessary Case management following arranging for discharge planning a prescription provided for nebulizer as patient will continue DuoNeb's 4 times a day to manage COPD Encouraged increased activity as tolerated. Awaiting discharge planning the next 24-48 hours once cleared by infectious disease and pulmonary. The impression and plan of care has been dictated by Estefani Parr, nurse practitioner as directed. Dr. Parrish MD I have performed a history and examination and MDM of this patient, discussed the same with the dictator, and agree with the dictator's assessment and plan as written ,documented as a scribe. Based on total visit time, I have performed more than 50% of the visit. Any additional findings or plans will be noted. Objective - Vital Signs Vital signs: Vital Signs Temp 97.8 F 09/11/23 02:00 Pulse 80 09/11/23 02:00 Resp 17 09/10/23 20:15 BP 137/71 09/11/23 02:00 Pulse Ox 96 09/11/23 02:00 FiO2 Intake & Output 09/10/23 09/10/23 09/11/23 06:59 18:59 06:59 Other: Voiding Method Toilet Toilet # Voids 2 4 # Bowel Movements 1 - Labs CBC & Chem 7: 09/08/23 07:21 09/10/23 06:43 Labs: Abnormal Lab Results - Last 24 Hours (Table) 09/10/23 Range/Units 06:43 Anion Gap 14.50 H (4.00-12.00) mmol/L BUN/Creatinine Ratio 24.00 H (12.00-20.00) Ratio Glucose 114 H (70-110) mg/dL Calcium 8.4 L (8.7-10.3) mg/dL Microbiology - Last 24 Hours (Table) 09/09/23 12:25 Acid Fast Bacilli Smear - Preliminary Bronchial Washings - Random
[2023-09-11] MEDS: MAGNESIUM SULFATE-D5W PMX 1 GM in DEXTROSE/WATER 1 100ML.BAG IVPB SCH ×2 (06:37→07:47)
[2023-09-11] MEDS: SYMBICORT 160-4.5 MCG INHALER INHALATION SCH (08:30)
[2023-09-11] MEDS: IPRATROPIUM-ALBUTEROL 3 ML NEB INHALATION SCH ×3 (08:30→15:29)
--- NOTE | 2023-09-11 08:55 | XR ---
EXAMINATION TYPE: XR chest 2V DATE OF EXAM: 09/11/2023 COMPARISON: 09/06/2023 TECHNIQUE: PA and lateral views submitted. HISTORY: Cough FINDINGS: Diffuse emphysematous changes are seen with a large area of masslike consolidation in the right mid l elsa and left hilum. No overt failure. Pneumothorax. Heart size normal. Curvature the spine with multi level degenerative change. IMPRESSION: 1. COPD with right mid lung and left hilar masslike area of consolidation. Differential diagnosis wou ld include neoplasm and pneumonia.
[2023-09-11] MEDS: amLODIPine 5 MG TAB PO SCH (11:28)
[2023-09-11] MEDS: LORATADINE 10 MG TAB PO SCH (11:28)
[2023-09-11] MEDS: NICOTINE 21MG/24HR PATCH TRANSDERM SCH (11:28)
[2023-09-11 11:31] LABS: Basophils # (A) 0.02 X 10*3/uL (0.00-0.10); Basophils % (A) 0.1 %; Eosinophils # (A) 0 X 10*3/uL (0.04-0.35); Eosinophils % (A) 0 %; HCT 43.5 % (37.2-46.3); HGB 13.5 d/dL (12.0-15.0); Lymphocytes % (A) 1.8 %; MCH 29.3 pg (27.0-32.0); MCV 94.6 FL (80.0-97.0); Mean Platelet Volume 11.2 FL (9.5-12.2); Monocytes # (A) 0.24 X 10*3/uL (0.20-1.00); Monocytes % (A) 1.5 %; NRBC Per 100 WBC 0 X 10*3/uL (0.00-0.01); Neutrophils % (A) 95.7 %; Platelet Count 414 X 10*3/uL (140-440); RDW 13.4 % (11.5-14.5)
[2023-09-11] MEDS: ALPRAZolam 0.25 MG TAB PO PRN (11:37)
[2023-09-11 11:41] LABS: Blood Urea Nitrogen 17.4 mg/dL (9.0-27.0); Calcium 8.5 mg/dL (8.7-10.3); Carbon Dioxide 31.4 mmol/L (21.6-31.8); Chloride 97 mmol/L (96-109); Glucose 150 mg/dL (70-110); Sodium 137 mmol/L (135-145)
--- NOTE | 2023-09-11 12:23 | P.PN ---
Subjective Progress Note Date: 09/11/23 This is a 63-year-old female patient, carries [id number] smoking history, coming into the hospital because of progressive worsening shortness of breath. Limited cough. No sputum production. No fever. No chills. No hemoptysis. No pleurisy. She has not seen any physician and recently struck to establish herself with Dr. Aggarwal. She doesn't take any form of medications. Does not use oxygen or bronchodilators at home. On admission, the white cell count was elevated at 26 and dropped down to 18. Hemoglobin is at 15.8 with a platelet count of 420. D-dimer is at 2.02. The patient is a BUN of 24 with a creatinine of 0.6 and a potassium level of 5.3 and a sodium level of 137. No previous his tory of Covid 19 infection in her Covid 19 came back negative. The rest of the viral screen was also negative. She did complain of some lower extremity edema. Chest x-ray showed bilateral pulmonary opacities consistent with pneumonia. No history of cardiac disease. No history of CHF. No cardiac arrhythmias. The patient is seen today September 17 in follow-up on the regular medical floor. She is currently sitting up at the bedside. Awake and alert in no acute distress. Maintaining O2 saturations in the 90s on 3 L/m per nasal cannula. Chest x-ray has revealed infiltrates of the right middle lobe and left lower lobe. Computed tomography scan of the chest revealed left lower lung airspace opacities, moderate to severe emphysematous changes, wedge-shaped area of consolidation in the right middle lobe. Scattered nodular densities. She is currently on ceftriaxone. She is continued on bronchodilators and steroids. NicoDerm patch in place. Heparin for DVT prophylaxis. Sodium 137. Potassium 4.9. Bicarb 39. BUN 20. Creatinine 0.50. Pro calcitonin 0.28. Legionella screen negative. The patient is seen today 09/08/2023 in follow-up on the regular medical floor. She is awake and alert in no acute distress. Sitting up at the bedside. Still with a loose cough and congestion. Maintaining O2 saturations in the 90s on 2 L/m per nasal cannula. White count 17.9. Hemoglobin 12.7. Platelets 373. Sodium 142. Potassium 5.3. Bicarb 34. BUN 15. Creatinine 0.5. Glucose 117. COVID-19 screen negative. She is on antibiotics in the form of Unasyn. Continued on Symbicort, DuoNeb inhalations, Solu-Medrol. NicoDerm patch in place. Heparin for DVT prophylaxis. Normal saline at 75 ML's per hour. Plan is for bronchoscopy with BAL today. The patient is seen today 09/09/2023 in follow-up on the regular medical floor. She is sitting up in bed. Awake and alert in no acute distress. The plan is for bronchoscopy with BAL today as the patient ate and drank prior to her procedure yesterday. She again verbalizes understanding. She is continued on Symbicort, DuoNeb inhalations, Solu-Medrol. She is improving today compared to yesterday. She is on antibiotics in the form of Unasyn. Heparin for DVT prophylaxis. NicoDerm patch and place. The patient is seen today 09/10/2023 in follow-up on the regular medical floor. She is sitting up in a chair. Awake and alert in no acute distress. Breathing easier today as compared to yesterday. Still with a congested cough. No fever or chills. Maintaining O2 saturations in the 90s on 3 L/m per nasal cannula. She's been afebrile. Blood cultures reveal no growth. Sodium 144. Potassium 5.1. Bicarb 30. BUN 14. Creatinine 0.6. Glucose 114. She is continued on Unasyn. She did have a bronchoscopy with BAL yesterday. Cultures pending. Cytology pending. She is continued on DuoNeb inhalations, Symbicort, IV Solu- Medrol. NicoDerm patch in place. Also utilizing Nicorette gum. Heparin for DVT prophylaxis. The patient is seen today 09/11/2023 in follow-up on the regular medical floor. She is awake and alert in no acute distress. Sitting up in a chair at the bedside. Feeling much better. Denies any worsening shortness of breath, cough or congestion. Does desaturate to 86% during walk on room air. She will be discharged on home oxygen. She remains on DuoNeb inhalations, Symbicort, Solu- Medrol. NicoDerm patch in place. Heparin for DVT prophylaxis. Chest x-ray reveals diffuse emphysema with continued infiltrates in the right midlung and left hilum. She did undergo bronchoscopy with BAL and cultures and cytology are pending. White count 16.4. Hemoglobin 13.5. Platelets 414. Sodium 137. Potassium 5.0. Bicarb 31. BUN 17. Creatinine 0.6. Glucose 150. Objective - Vital Signs Vital signs: Vital Signs Temp 97.9 F 09/11/23 06:35 Pulse 92 09/11/23 11:38 Resp 20 09/11/23 06:35 BP 146/79 09/11/23 06:35 Pulse Ox 86 L 09/11/23 10:24 FiO2 Intake & Output 09/10/23 09/11/23 09/11/23 18:59 06:59 18:59 Other: Voiding Method Toilet Toilet Toilet # Voids 4 3 # Bowel Movements 1 - Exam GENERAL EXAM: Alert, pleasant 63-year-old female, on 3 L nasal cannula, comfortable in no apparent distress. HEAD: Normocephalic. EYES: Normal reaction of pupils, equal size. NOSE: Clear with pink turbinates. THROAT: No erythema or exudates. NECK: No masses, no JVD. CHEST: No chest wall deformity. LUNGS: Equal air entry with bilateral end expiratory wheeze, diminished. CVS: S1 and S2 normal with no audible murmur, regular rhythm. ABDOMEN: No hepatosplenomegaly, normal bowel sounds, no guarding or rigidity. SPINE: No scoliosis or deformity SKIN: No rashes CENTRAL NERVOUS SYSTEM: No focal deficits, tone is normal in all 4 extremities. EXTREMITIES: There is no peripheral edema. No clubbing, no cyanosis. Peripheral pulses are intact. - Labs CBC & Chem 7: 09/11/23 06:34 09/11/23 06:34 Labs: Abnormal Lab Results - Last 24 Hours (Table) 09/11/23 09/11/23 Range/Units 06:34 06:34 WBC 16.40 H (4.50-10.00) X 10*3/uL MCHC 31.0 L (32.0-37.0) d/dL Neutrophils # 15.70 H (1.80-7.70) X 10*3/uL Lymphocytes # 0.30 L (0.90-5.00) X 10*3/uL Eosinophils # 0 L (0.04-0.35) X 10*3/uL BUN/Creatinine Ratio 29.00 H (12.00-20.00) Ratio Glucose 150 H (70-110) mg/dL Calcium 8.5 L (8.7-10.3) mg/dL Microbiology - Last 24 Hours (Table) 09/09/23 12:25 Acid Fast Bacilli Smear - Preliminary Bronchial Washings - Random Assessment and Plan Assessment: Acute COPD exacerbation. The patient has not been evaluated in the past by primary care physician or pulmonology. CT scan reveals moderate to severe emphysematous changes. Right middle lobe consolidation extends towards the periphery with wedge shaped infiltrate measuring 3.9 x 3.9 cm. Airspace opacities superimposed on the left lower lobe. Scattered nodular densities noted. Bronchoscopy with BAL performed on 09/09/2023. Cultures and cytology pending. Follow-up chest x-ray showing improvement. Acute bilateral community-acquired pneumonia, continued on Unasyn Acute hypoxic respiratory failure secondary to above Acute leukocytosis secondary to above Chronic and ongoing tobacco dependence of nearly 50 years Plan: The patient was seen and evaluated Chest X-ray, medications and labs reviewed Bronchial wash cultures and cytology pending Cleared for discharge from the pulmonary standpoint She does qualify for home oxygen T new Symbicort, albuterol HFA Educated regarding the importance of complete smoking cessation Continue nicotine patch and gum as needed Follow-up in our office in 1 week This patient was seen independently by the nurse practitioner I have personally seen and examined the patient, performed the documentation and the assessment and plan as written. Number of minutes spent on the visit: 25.
[2023-09-11 13:08] VITALS: BP 137/75; RESP 19; TEMP 98
--- NOTE | 2023-09-11 14:40 | P.EN ---
Patient will require a nebulizer on discharge for DuoNeb 4 times a day to manage COPD. Patient will also require 2 L of oxygen via nasal cannula to manage COPD.
[2023-09-11 15:44] VITALS: PULSE 92
--- NOTE | 2023-09-16 07:09 | P.DS ---
Providers Date of admission: 09/05/23 18:50 Expected date of discharge: 09/11/23 Attending physician: Smooth Magana Consults: 09/05/23 20:03 Consult Physician Routine Consulting Provider: Gail Grant Consult Reason/Comments: pneumonia, copd Do you want consulting provider notified?: Yes 09/06/23 11:44 Consult Physician Routine Consulting Provider: Jesus Calderón Consult Reason/Comments: pneumonia Do you want consulting provider notified?: Yes Primary care physician: Cheyenne Aggarwal Hospital Course: Final diagnosis Shortness of breath with acute hypoxic respiratory failure secondary to COPD exacerbation Acute bilateral pneumonia, possibly gram-negative left more than right, community-acquired Continued ongoing nicotine dependence, patient reports smokes at least 2 packs per day Elevated d-dimer, PE ruled out Mild protein calorie malnutrition with a BMI of 16.2 Noncompliance with medications and follow-up Hypertension GI prophylaxis DVT prophylaxis Full code Discharge disposition Patient is being discharged in a stable condition with guarded prognosis to home. Patient will follow-up with Dr. Aggarwal in the outpatient setting upon discharge. Patient is to continue with oral Augmentin and close outpatient follow-up with pulmonary as scheduled. Patient will continue on 2 L via nasal cannula on discharge to manage COPD. Total time taken is greater than 35 minutes. Hospital course This is a 63-year-old female who was recently admitted with shortness of breath with acute hypoxic respiratory failure secondary to COPD exacerbation. Patient being monitored by pulmonary and is status post bronchoscopy with BAL. After further review culture showing Kianna from the BAL and patient was continued on Augmentin twice daily to complete the course and will call in Diflucan to her pharmacy as well. Recommend outpatient follow-up with pulmonary and resources also provided for cardiology and patient instructed to follow-up with primary care provider. Extensive counseling done on tobacco cessation. Patient continued with shortness of breath and hypoxia and will require oxygen at 2 L via nasal cannula on discharge to manage COPD. Nebulizer was also provided as patient is continued on DuoNeb treatments. Patient has been cleared for discharge. Please refer to their consultation notes for further HPI. Currently no reports of chest pain, no worsening shortness of breath, or palpitations. Patient is afebrile. No reports of nausea or vomiting and patient is tolerating diet. Patient will be discharged home today. Physical exam: Gen: This is a 63-year-old female who is awake, alert and oriented 3, thin built, appears nodular than stated age, well-developed HEENT: Head is atraumatic, normocephalic. Pupils equal, round. Sclerae is an icteric. NECK: Supple. No JVD. No lymphadenopathy. No thyromegaly. LUNGS: Clear to auscultation. Coarse scattered rhonchi. No intercostal retractions. HEART: Regular rate and rhythm. No murmur. ABDOMEN: Soft. Thin. Bowel sounds are present. No masses. No tenderness. EXTREMITIES: No pedal edema. No calf tenderness. NEUROLOGICAL: Patient is awake, alert and oriented x3. Cranial nerves 2 through 12 are grossly intact. Please refer to medication reconciliation sheet for a list of medications. The impression and plan of care has been dictated by Estefani Parr, Nurse Practitioner as directed. Dr. Amador MD I have performed a history and examination and MDM of this patient, discussed the same with the dictator, and agree with the dictator's assessment and plan as written ,documented as a scribe. Based on total visit time, I have performed more than 50% of the visit. Patient Condition at Discharge: Stable Plan - Discharge Summary Discharge Rx Participant: Yes New Discharge Prescriptions: New Loratadine [Claritin] 10 mg PO DAILY #30 tab Ipratropium-Albuterol Nebulize [Duoneb 0.5 mg-3 mg/3 ml Soln] 3 ml INHALATION RT-Q2H PRN each PRN Reason: Shortness Of Breath Or Wheezing Nicotine 21Mg/24Hr Patch [Habitrol] 1 patch TRANSDERM DAILY #30 patch Nicotine Gum (Polacrilex) [Nicorette] 2 mg BUCCAL Q4HR PRN #30 pieceofgum PRN Reason: Nicotine Cravings amLODIPine [Norvasc] 5 mg PO DAILY #30 tab predniSONE 10 mg PO DIRECTED #30 tab ALPRAZolam [Xanax] 0.25 mg PO BID PRN #6 tab PRN Reason: Anxiety Fluconazole [Diflucan] 100 mg PO DAILY 7 Days #7 tablet Amoxic-Pot Clav 875-125Mg [Augmentin 875-125] 1 tab PO Q12HR 7 Days #14 tab Ipratropium-Albuterol Nebulize [Duoneb 0.5 mg-3 mg/3 ml Soln] 3 ml INHALATION RT-QID #100 each Budesonide-Formot 160-4.5 Mcg [Symbicort 160-4.5 Mcg Inhaler] 2 puff INHALATION RT-BID 30 Days #1 each Acetaminophen Tab [Tylenol] 650 mg PO Q6HR PRN tab PRN Reason: Mild Pain Or Fever > 100.5 Discharge Medication List ALPRAZolam [Xanax] 0.25 mg PO BID PRN #6 tab 09/11/23 [Rx] Acetaminophen Tab [Tylenol] 650 mg PO Q6HR PRN tab 09/11/23 [Rx] Amoxic-Pot Clav 875-125Mg [Augmentin 875-125] 1 tab PO Q12HR 7 Days #14 tab 09/11/23 [Rx] Budesonide-Formot 160-4.5 Mcg [Symbicort 160-4.5 Mcg Inhaler] 2 puff INHALATION RT-BID 30 Days #1 each 09/11/23 [Rx] Ipratropium-Albuterol Nebulize [Duoneb 0.5 mg-3 mg/3 ml Soln] 3 ml INHALATION RT-Q2H PRN each 09/11/23 [Rx] Ipratropium-Albuterol Nebulize [Duoneb 0.5 mg-3 mg/3 ml Soln] 3 ml INHALATION RT-QID #100 each 09/11/23 [Rx] Loratadine [Claritin] 10 mg PO DAILY #30 tab 09/11/23 [Rx] Nicotine 21Mg/24Hr Patch [Habitrol] 1 patch TRANSDERM DAILY #30 patch 09/11/23 [Rx] Nicotine Gum (Polacrilex) [Nicorette] 2 mg BUCCAL Q4HR PRN #30 pieceofgum 09/11/23 [Rx] amLODIPine [Norvasc] 5 mg PO DAILY #30 tab 09/11/23 [Rx] predniSONE 10 mg PO DIRECTED #30 tab 09/11/23 [Rx] Fluconazole [Diflucan] 100 mg PO DAILY 7 Days #7 tablet 09/16/23 [Rx] Follow up Appointment(s)/Referral(s): Mario Alberto Figueroa MD [STAFF PHYSICIAN] - 1 Week [facility] [NON-STAFF] - As Needed (Nebulizer and Oxygen) Cheyenne Aggarwal MD [Primary Care Provider] - 1-2 days Patient Instructions/Handouts: Potassium Content of Foods List (DC), COPD (Chronic Obstructive Pulmonary Disease) (DC) Activity/Diet/Wound Care/Special Instructions: Activity Limited until follow-up Follow-up with primary care provider on discharge Follow-up with pulmonary outpatient Continue taking medications as prescribed Continue to avoid tobacco use and exposure Discharge Disposition: HOME SELF-CARE
--- NOTE | 2023-09-16 13:15 | CDI ---
Documentation Clarification Form Date: 09/16/2023 01:10:21 PM From: Rubi Adams RN, CCDS Email: [email or web address] Admit Date: 09/05/2023 06:50:00 PM Patient Name: Aislinn Mabry Visit Number: [id number] Discharge Date: 09/11/2023 05:25:00 PM ATTENTION: The Clinical Documentation Specialists (CDI) and [facility] Coding Staff appreciate your assistance in clarifying documentation. Please respond to the clarification below the line at the bottom and electronically sign. The CDI & [facility] Coding staff will review the response and follow-up if needed. Please note: Queries are made part of the Legal Health Record. If you have any questions, please contact the author of this message via ITS. Dr. Smooth Magana The patient had possible gram negative pneumonia. Based on this information and the findings below, is there an additional diagnosis that is clinically appropriate for this patient? History/Risk Factors: COPD, smoker. Presented with SOB, cough and hypoxic. Admitted with COPD exacerbation, BL possible gram-negative pneumonia and acute hypoxic respiratory failure. Clinical Indicators: 09/02 CXR: lower lobe interstitial opacity along with small left pleural effusion. The findings consistent with acute cardiopulmonary disease most likely pneumonia. 09/05 WBC 26.1, Neutrophils 23.7; 09/06 WBC 18.2, Neutrophils 17.1; 09/07 WBC 17.67, Neutrophils 17.10 09/06 Procalcitonin: 0.28 Bronchial washings: Kianna albicans Vital signs: 09/05 HR [id number], RR 22, BP 92/46, pox 67-88-92-96% 09/07 Pulmonary: "Acute COPD exacerbation; acute BL CAP; acute hypoxic respiratory failure; acute leukocytosis secondary to the above." Discharge summary: "Acute bilateral pneumonia, possibly gram-negative left more than right, community-acquired." Treatment: 09/10 ID: "patient presented to hospital with increasing shortness of breath and cough and hypoxemia, source is likely COPD exacerbation and a component of left lower lobe pneumonia, likely community-acquired." Antibiotics: IV Azithromycin 500mg x1 on 09/05; IV Rocephin 2gm x1 on 09/05 then Q8H 09/06-09/08; IV Unasyn 3gm Q6H 09/08-09/11 IV: 0.9 NS @75mL/hr 09/05-09/10 Is there an additional diagnosis that is clinically appropriate for this patient? [ ] Gram negative Sepsis, present on admission [ ] Other, please specify [ ] Unable to determine SIRS Criteria: 2 or more of the following may indicate SIRS Temperature < 96.8F (36C) or > 101.0F (38.3C) Heart Rate > 90 bpm Respiratory Rate > 20 breaths/min or PaCO2 < 32 mmHg White Blood Cell Count > 12,000 or < 4,000 cells/mm3 or > 10% bands Gram negative Sepsis, present on admission MTDD
--- NOTE | 2023-09-18 13:05 | P.PN ---
Subjective Progress Note Date: 09/11/23 Principal diagnosis: Pneumonia Patient is a 63-year-old female with a past medical history significant for COPD current everyday smoker presenting to the hospital for charlene luation of increasing shortness of breath and a cough patient was hypoxic and did have evidence of left lower lobe airspace disease concerning for pneumonia. On today's evaluation that is 09/11/2023, the patient denies any fever or chills, the patient is breathing comfortably on 3 L, the patient denies chest pain and cough is decreased intensity with sputum production, patient denies nausea/vomiting and no diarrhea, Patient did have a white count of 16.40, creatinine 0.6, blood cultures are negative, bronchial washing with kianna Objective - Vital Signs Vital signs: Vital Signs Temp 98.0 F 09/11/23 12:55 Pulse 89 09/11/23 12:55 Resp 19 09/11/23 12:55 BP 137/75 09/11/23 12:55 Pulse Ox 91 L 09/11/23 12:55 FiO2 Intake & Output 09/10/23 09/11/23 09/11/23 18:59 06:59 18:59 Weight 49.895 kg Other: Voiding Method Toilet Toilet Toilet # Voids 4 3 # Bowel Movements 1 - Exam GENERAL DESCRIPTION: A middle-age female up in bed in no distress RESPIRATORY SYSTEM: Unlabored breathing , coarse breath sounds Bilaterally with Occasional Wheeze HEART: S1 S2 regular rate and rhythm , ABDOMEN: Soft , no tenderness EXTREMITIES: No edema feet - Labs CBC & Chem 7: 09/11/23 06:34 09/11/23 06:34 Labs: Abnormal Lab Results - Last 24 Hours (Table) 09/11/23 09/11/23 Range/Units 06:34 06:34 WBC 16.40 H (4.50-10.00) X 10*3/uL MCHC 31.0 L (32.0-37.0) d/dL Neutrophils # 15.70 H (1.80-7.70) X 10*3/uL Lymphocytes # 0.30 L (0.90-5.00) X 10*3/uL Eosinophils # 0 L (0.04-0.35) X 10*3/uL BUN/Creatinine Ratio 29.00 H (12.00-20.00) Ratio Glucose 150 H (70-110) mg/dL Calcium 8.5 L (8.7-10.3) mg/dL Microbiology - Last 24 Hours (Table) 09/05/23 19:42 Blood Culture - Final Blood 09/05/23 19:42 Blood Culture - Final Blood 09/09/23 12:25 Gram Stain - Preliminary Bronchial Washings - Random 09/09/23 12:25 Acid Fast Bacilli Smear - Preliminary Bronchial Washings - Random Assessment and Plan (1) Pneumonia Status: Acute Code(s): J18.9 - PNEUMONIA, UNSPECIFIED ORGANISM SNOMED Code(s): 387816719 Plan: 1patient presented to hospital with increasing shortness of breath and cough in this patient with evidence of hypoxemia source is likely COPD exacerbation and a component of left lower lobe pneumonia likely community-acquired as the patient has not been on antibiotic in the recent past, 2-sputum could not be collected so far, patient scheduled for bronchoscopy and lavage and cultures are currently growing Kianna which is likely colonized 3- patient has shown clinical improvement with Unasyn , plan to finish Therapy with oral Augmentin and close outpatient follow-up Time with Patient: Less than 30
== END 2023-09-11 17:25 | disposition home or self-care (01) | DRG 871 ==
LOC: EC 16:36 → 4SSUR 18:50
PROVIDERS: ADMIT Hospitalist; ATTEND Hospitalist
PROC: 0B9D8ZX Drainage of Right Middle Lung Lobe, Via Natural or Artificial Opening Endoscopic, Diagnostic (ICD-10-PCS; 2023-09-09)
PROC: 0B9J8ZX Drainage of Left Lower Lung Lobe, Via Natural or Artificial Opening Endoscopic, Diagnostic (ICD-10-PCS; principal; 2023-09-09 07:30)
DX: A41.50 Gram-negative sepsis, unspecified (principal); J15.69 Pneumonia due to other Gram-negative bacteria; J96.01 Acute respiratory failure with hypoxia; E44.1 Mild protein-calorie malnutrition; Z68.1 Body mass index [BMI] 19.9 or less, adult; F17.210 Nicotine dependence, cigarettes, uncomplicated; I11.0 Hypertensive heart disease with heart failure; I50.810 Right heart failure, unspecified; Z20.822 Contact with and (suspected) exposure to COVID-19; J43.9 Emphysema, unspecified; Z91.148 Patient's other noncompliance with medication regimen for other reason; Z88.2 Allergy status to sulfonamides; Z71.6 Tobacco abuse counseling; Z91.199 Patient's noncompliance with other medical treatment and regimen due to unspecified reason
CPT/HCPCS: 31624; 36415; 71046; 71260; 80048; 80053; 83605; 83735; 83880; 84145; 85025; 85379; 85610; 85730; 86738; 87040; 87070; 87102; 87116; 87205; 87206; 87449; 87496; 87498; 87502; 87529; 87634; 87636; 87798; 93005; 93306; 94640; 94760; 96361; 96365; 96367; 96368; 96375; 99291